=== PATIENT | male | born 1940 | race Caucasian/White ===

== ENCOUNTER 2018-10-15 00:28 | Observation (INO) ==
[2018-10-15] MEDS ORDERED: 0.9 % Sodium Chloride 1,000 ML IVC ONE ×3 (00:40→07:35)
--- NOTE | 2018-10-15 01:18 | Emergency Department Note ---
Disposition Clinical Impression: Acute kidney injury, Prostate cancer metastatic to multiple sites Failure to thrive Qualifiers: Failure to thrive age range: in adult Qualified Code(s): R62.7 - Adult failure to thrive Disposition: Admitted As Inpatient General Adult HPI - General Chief complaint: ED Weakness Stated complaint: weakness Time Seen by Provider: 10/15/18 00:33 Source: patient, EMS Mode of arrival: EMS Limitations: no limitations Nursing Notes Reviewed: Yes Vital Signs Reviewed: Yes - History of Present Illness HPI Narrative: 78-year-old male with a history of current prostate cancer with metastasis to liver, bone, visceral metastasis, A. fib who is anticoagulated nonproductive, hypertension presents emergency department for evaluation of increasing weakness, he was unable get up off the toilet today at home. Patient states that this has been an ongoing problem for several months to the point that he had stopped taking chemotherapy 5 weeks ago due to increasing weakness and "drained". Patient states he is frequently oncology for boluses of fluids because he is unable to intake. Much water or eat very much food. Patient denies feeling ill, recent illness, fever, chills, alteration in mental status, confusion, shortness of breath, coughing (he states chronic cough but has not changed), chest pain, abdominal pain, nausea, vomiting, constipation, diarrhea, genitourinary issues. Last bowel movement was 2 days ago. He is cur rently denying pain. Onset (ago): month(s) Pain Scale: 0 - Related Data Home Medications Medication Instructions Recorded Confirmed Ondansetron ODT [Zofran ODT] 4 mg SL Q6HR PRN 10/15/18 10/18/18 Atorvastatin [Lipitor] 10 mg PO HS 10/18/18 10/18/18 Dabigatran [Pradaxa] 150 mg PO BID 10/18/18 10/18/18 Diltiazem HCl [Diltiazem 24Hr Cd] 360 mg PO DAILY 10/18/18 10/18/18 Metoprolol Succinate [Toprol Xl] 100 mg PO DAILY 10/18/18 10/18/18 Omeprazole [PriLOSEC] 40 mg PO DAILY 10/18/18 10/18/18 hydroCHLOROthiazide 25 mg PO DAILY 10/18/18 10/18/18 [Hydrochlorothiazide] Previous Rx's Medication Instructions Recorded Acetaminophen [Tylenol Susp] 650 mg PO Q6HR PRN ud.liq 10/18/18 Haloperidol Oral Conc [Haldol] 2 mg PO Q6H udc 10/18/18 Hyoscyamine SL [Levsin Sl] 0.125 mg SL Q4HR PRN tab.subl 10/18/18 LORazepam Oral Conc [Ativan Oral 1 mg PO Q4HR PRN mls 10/18/18 Conc] Levalbuterol Neb [Xopenex Neb] 0.63 mg IH [id number] vial.neb 10/18/18 MORPHINE SUL Oral CONC [Roxanol 5 mg SL Q1H PRN oral.syg 10/18/18 Oral Conc] MORPHINE SUL Oral CONC [Roxanol 10 mg SL Q1H PRN oral.syg 10/18/18 Oral Conc] Allergies Allergy/AdvReac Type Severity Reaction Status Date / Time No Known Allergies Allergy Verified 10/15/18 13:42 All systems ED: reviewed and negative except as stated. Review of Systems: As Per HPI Past Medical History - Past Medical History Attestation: Yes The following information was validated with the patient. Source: patient, old records reviewed Medical history: Reports: arthritis, atrial fibrillation, cancer, GERD, h ypertension, other Surgical history: Reports: orthopedic, other, other Psychiatric history: Reports: no psych history - Social History Smoking Status: Never smoker Smokeless Tobacco Status: No Alcohol use: Reports: occasionally Drug use: Reports: none Physical Exam - General Limitations: no limitations General appearance: alert, in no apparent distress - Head Head exam: atraumatic, normocephalic, normal inspection - Eye Eye exam: Present: normal appearance - ENT ENT exam: mucous membranes dry - Neck Neck exam: Present: normal inspection, full ROM, trachea midline - Chest Chest inspection: Present: normal inspection, symmetric chest wall rise, other (Chronic edema left greater than right) - Respiratory Respiratory exam: Present: normal lung sounds bilaterally - Cardiovascular Cardiovascular exam: Present: tachycardia, irregular rhythm - Abdominal Exam Abdominal exam: Present: soft, Non-Tender, normal bowel sounds - Expanded Lower Extremity Exam Neurovascular/Tendon exam: Present: normal capillary refill. Absent: pulse deficit, motor deficit, sensory deficit - Neurological Exam Neurological exam: Present: alert, oriented X3 - Psychiatric Psychiatric exam: Present: normal affect, normal mood - Skin Skin exam: Present: warm, dry, intact, normal color Course Course Narrative: Cachetic, chronically ill appearing male in no acute distress. Patient does not appear toxic, he does appear dry. Patient is afebrile, tachycardic with a heart rate sustaining between 1:30 and 155, EKG reveals atrial fibrillation with a hea rt rate of 126, no noted to be sustaining slightly higher during assessment. Respirations are easy and even. He is not hypoxic, he appears to have great perfusion distally, capillary refill brisk. During examination patient blood pressure systolics in the 80s, and 10 minutes later systolic was in the low 60s. Physical exam reveals patient is alert and oriented, neurologically intact, carrying conversation well able to recall for and long-term memory. Patient is very pleasant he is not anxious. Patient noted with chronic edema to the bilateral lower extremities left greater than right, he states this has not changed that he used to be on hydrochlorothiazide however he was taken off the due to decrease fluid intake. Rest of physical exam is benign Multiple oncology visits for fluid replacement within the last several months. Record review shows last echo 2014 with a 55% ejection fraction. Patient has chronic A. fib he is appropriately anticoagulated. Patient without signs of systemic illness, I feel the elevated heart rate is mostly due to severe dehydration, patient is chronically weak though it is progressing. We will obtain labs, chest x-ray, UA to rule out infectious process. Patient without evidence of systemic infection or evidence of sepsis initially, however given cancer diagnosis it could just be hidden. We will start fluid boluses for blood pressure management, heart rate control, rehydration. Patient's family is with him in the room. We did discuss with patient in the life care, CODE STATUS he and family state that no one oncologist had this conversation with him yet. Reluctant we will conversation at this time, we will proceed with full resuscitation and continue conversation. Plan initially was for admission for failure to thrive pending testing and further evaluation. - Reevaluation(s) Reevaluation #1: Patient's chest x-ray shows worsening metastatic disease when comparison with previous study, patient with metastasis to liver, bones, he is very to thrive not tolerating by mouth intake or chemotherapy. His heart rate has been sustaining in the 110s, blood pressure is now 90 systolic after 1 L fluid, we will start the second liter. Labs returned with a CBC benign, creatinine elevated at 2.02, GFR 32, and AST significantly elevated from baseline, lactic acid is 2.9. Troponin is negative, patient is slightly hypokalemic, hypocalcemic (supposed to have a calcium infusion in the a.m. tomorrow). His could be attributed to the severe dehydration, failure to thrive from lack of nutritional intake and cancer metastasis or patient could have an underlying systemic response that has not revealed itself as of yet. We will continue to give fluids to stabilize blood pressure and heart rate as well as we will give one dose of Zosyn. Again, conversation with patient in front of and son with his permission regarding prognosis, presumptive worsening of metastasis to the lungs, failure to thrive status. We did have a conversation regarding CODE STATUS, patient with new information and is very upset, he is fluctuating between intubation or not. Conversation with family very emotional, patient visibly upset and he does feel slightly anxious while talking about it. Patient continues to fluctuate between resuscitation status and no resuscitation, I did discuss with them that he is welcome to change his mind and that we will have the oncology and palliative people speak with him in the morning they are agreeable to this. As of right now does appear patient will be a full code at least through the nighttime hours. Patient with good family support, they do agree with admission as they are unable to care for him at home. Patient is agreeable with inpatient status see no see cannot take care of himself at home. Did speak with hospitalist who is agreeable for admission, I did discuss with family consult palliative care and is agreeable to meeting with the palliative team as well as the oncology team, spoke with bed management blood in them know of plan for palliative consult, failure to thrive, there are beds available on the unit that holds the palliative patient's, plan for admission to that particular unit. We will transition patient to the inpatient team at this time. Time: 03:01 Vital Signs Temperature 97.6 F 10/15/18 00:31 Pulse Rate 61 10/15/18 00:31 Respiratory Rate 20 10/15/18 00:31 Blood Pressure 79/59 10/15/18 00:31 O2 Sat by Pulse Oximetry 94 10/15/18 00:31 Temperature 98 F 10/18/18 04:25 Pulse Rate 160 10/18/18 04:25 Respiratory Rate 20 10/18/18 05:44 Blood Pressure 56/37 10/18/18 04:25 O2 Sat by Pulse Oximetry 94 10/18/18 05:44 Oxygen Delivery Oxygen Delivery Room Air Medical Decision Making - Lab Data Result diagrams: 10/16/18 06:59 10/16/18 06:59 Lab Results 10/15/18 10/15/18 10/15/18 Range/Units 01:02 01:02 01:02 WBC 7.1 (4.3-11.1) K/mcL RBC 4.46 (4.19-5.50) M/mcL Hgb 11.9 L (12.9-16.9) g/dL Hct 38.1 (37.5-50.1) % MCV 85.4 (83.0-100.0) fL MCH 26.7 L (28.0-33.3) pg MCHC 31.2 L (31.6-35.5) g/dL RDW 19.6 H (11.5-14.5) % Plt Count 338 (140-400) K/mcL MPV 9.5 (9.4-12.4) fL Immature Gran % 1.0 (0-4) % Seg Neutrophils % 82.1 % Lymphocytes % 8.2 % Monocytes % 7.7 % Eosinophils % 0.6 % Basophils % 0.4 % Neutrophils # 5.8 (1.6-8.9) K/mcL Lymphocytes # 0.6 (0.6-4.6) K/mcL Monocytes # 0.6 (0.0-1.3) K/mcL Eosinophils # 0.0 (0.0-0.6) K/mcL Basophils # 0.0 (0.0-0.2) K/mcL Nucleated RBCs/100 WBC 0.4 H (0) /100 WBC PT (9.4-12.1) Seconds INR Sodium 136 (136-145) mEq/L Potassium 3.3 L (3.5-5.1) mEq/L Chloride 101 (98-107) mEq/L Carbon Dioxide 19 L (23-29) mEq/L BUN 36 H (8-23) mg/dL Creatinine 2.02 H (0.70-1.30) mg/dL Est GFR ( Amer) 39 L (> 60) Est GFR (Non-Af Amer) 32 L (> 60) BUN/Creatinine Ratio 18 (6-26) Glucose 108 H (70-105) mg/dL Calculated Osmolality 291 (280-300) Lactic Acid 2.9 H (0.5-2.2) mmol/L Calcium 6.9 L (8.6-10.3) mg/dL Phosphorus 4.1 (2.7-4.5) mg/dL Magnesium 1.9 (1.6-2.6) mg/dL Total Bilirubin 0.9 (0.3-1.0) mg/dL Direct Bilirubin 0.3 H (0.0-0.2) mg/dL Indirect Bilirubin 0.6 (0.0-1.2) mg/dL AST 219 H (13-39) Units/L ALT 35 (7-52) Units/L Alkaline Phosphatase 213 H (34-104) Units/L Troponin I < 0.03 (< 0.04) ng/mL Serum Total Protein 5.2 L (6.4-8.9) g/dL Albumin 2.8 L (3.5-5.7) g/dL Globulin 2.4 (2.4-3.5) g/dL Albumin/Globulin Ratio 1.2 (1.1-2.2) Specimen Rejected Blood Type Antibody Screen 10/15/18 10/15/18 10/15/18 Range/Units 01:02 01:36 01:49 WBC (4.3-11.1) K/mcL RBC (4.19-5.50) M/mcL Hgb (12.9-16.9) g/dL Hct (37.5-50.1) % MCV (83.0-100.0) fL MCH (28.0-33.3) pg MCHC (31.6-35.5) g/dL RDW (11.5-14.5) % Plt Count (140-400) K/mcL MPV (9.4-12.4) fL Immature Gran % (0-4) % Seg Neutrophils % % Lymphocytes % % Monocytes % % Eosinophils % % Basophils % % Neutrophils # (1.6-8.9) K/mcL Lymphocytes # (0.6-4.6) K/mcL Monocytes # (0.0-1.3) K/mcL Eosinophils # (0.0-0.6) K/mcL Basophils # (0.0-0.2) K/mcL Nucleated RBCs/100 WBC (0) /100 WBC PT 20.5 H (9.4-12.1) Seconds INR 1.8 Sodium (136-145) mEq/L Potassium (3.5-5.1) mEq/L Chloride (98-107) mEq/L Carbon Dioxide (23-29) mEq/L BUN (8-23) mg/dL Creatinine (0.70-1.30) mg/dL Est GFR ( Amer) (> 60) Est GFR (Non-Af Amer) (> 60) BUN/Creatinine Ratio (6-26) Glucose (70-105) mg/dL Calculated Osmolality (280-300) Lactic Acid (0.5-2.2) mmol/L Calcium (8.6-10.3) mg/dL Phosphorus (2.7-4.5) mg/dL Magnesium (1.6-2.6) mg/dL Total Bilirubin (0.3-1.0) mg/dL Direct Bilirubin (0.0-0.2) mg/dL Indirect Bilirubin (0.0-1.2) mg/dL AST (13-39) Units/L ALT (7-52) Units/L Alkaline Phosphatase (34-104) Units/L Troponin I (< 0.04) ng/mL Serum Total Protein (6.4-8.9) g/dL Albumin (3.5-5.7) g/dL Globulin (2.4-3.5) g/dL Albumin/Globulin Ratio (1.1-2.2) Specimen Rejected Volume Blood Type B POSITIVE Antibody Screen NEGATIVE
[2018-10-15 01:21] LABS: Basophils % 0.4 %; Eosinophils % 0.6 %; Hematocrit 38.1 % (37.5-50.1); Hemoglobin 11.9 g/dL (12.9-16.9); Lymphocytes # 0.6 K/mcL (0.6-4.6); Lymphocytes % 8.2 %; Mean Corpuscular HGB Conc 31.2 g/dL (31.6-35.5); Mean Corpuscular Hemoglobin 26.7 pg (28.0-33.3); Mean Corpuscular Volume 85.4 fL (83.0-100.0); Mean Platelet Volume 9.5 fL (9.4-12.4); Monocytes # 0.6 K/mcL (0.0-1.3); Monocytes % 7.7 %; Neutrophils # 5.8 K/mcL (1.6-8.9); Nucleated Red Blood Cells 0.4 /100 WBC (0); Platelet Count 338 K/mcL (140-400); Red Blood Count 4.46 M/mcL (4.19-5.50); Red Cell Distribution Width 19.6 % (11.5-14.5); Segmented Neutrophils % 82.1 %
[2018-10-15 02:00] LABS: INR 1.8; Prothrombin Time 20.5 Seconds (9.4-12.1)
[2018-10-15 02:01] LABS: Alanine Aminotransferase 35 Units/L (7-52); Albumin 2.8 g/dL (3.5-5.7); Albumin/Globulin Ratio 1.2 (1.1-2.2); Alkaline Phosphatase 213 Units/L (34-104); Aspartate Amino Transferase 219 Units/L (13-39); BUN/Creatinine Ratio 18 (6-26); Bilirubin,Direct 0.3 mg/dL (0.0-0.2); Bilirubin,Indirect 0.6 mg/dL (0.0-1.2); Bilirubin,Total 0.9 mg/dL (0.3-1.0); Blood Urea Nitrogen 36 mg/dL (8-23); Calcium 6.9 mg/dL (8.6-10.3); Carbon Dioxide 19 mEq/L (23-29); Chloride 101 mEq/L (98-107); Globulin 2.4 g/dL (2.4-3.5); Glucose 108 mg/dL (70-105); Magnesium 1.9 mg/dL (1.6-2.6); Osmolality,Calculated 291 (280-300); Phosphorous 4.1 mg/dL (2.7-4.5); Potassium 3.3 mEq/L (3.5-5.1); Sodium 136 mEq/L (136-145); Total Protein 5.2 g/dL (6.4-8.9); Troponin I < 0.03 ng/mL (< 0.04); eGFR For Non-African Americans 32 (> 60)
[2018-10-15] MEDS ORDERED: Potassium Chloride Elixir 20 MEQ/15 ML UDC PO ONE (02:06)
[2018-10-15] MEDS ORDERED: Piperacillin/Tazobactam 3.375 GM in 0.9 % Sodium Chloride Mini Bag 100 ML IVPB ONE (02:51)
[2018-10-15] MEDS ORDERED: Ondansetron 4 MG/2 ML VIAL IVP PRN (03:22)
[2018-10-15] MEDS ORDERED: Naloxone 0.4 MG/ML INJ IVP PRN ×2 (03:22→03:23)
[2018-10-15] MEDS ORDERED: Acetaminophen 325 MG TABLET PO PRN (03:23)
--- NOTE | 2018-10-15 03:28 | Internal Med History&Physical ---
Date of Encounter: 10/15/18 Time of Encounter: 03:24 Internal Medicine - H&P: HPI Chief complaint: weakness Admitted From: Emergency Dept Plans for Post Hospital Care: Home History of present illness: Mr. Cabrera is a 78 year old male with history of hypertension, A. fib, GERD, metastatic prostate cancer with multiple treatment modalities in the past but lately has been on chemotherapy with last dose about 5 weeks ago. He has not had chemotherapy since then as his performance status has declined. He has apparently been lethargic and weak for the past couple months or so. This has progressed to needing IV hydration through his oncologist lately. The patient is walker dependent now. Today he could not get himself up from the commode and EMS were called and transferred the patient to facility. He was noted to be tachycardic and in A. fib with rates reports the 140s.. He had signs of dehydration with a blood pressure of 70 systolically initially. This improved with IV fluids. He also received 40 mEq of oral potassium in the ED as his potassium was 3.3. Labs also showed lactic acidosis and acute kidney injury as well as elevated liver enzymes consistent with known metastatic prostate cancer to the liver. He denies any fever, chills, nausea, vomiting, chest pain, abdominal pain, diarrhea, shortness of breath, urinary symptoms, or neurological symptoms other than weakness. Past Med Surg Social Fam HX - Past Medical History Medical history: arthritis, atrial fibrillation, cancer, GERD, hypertension, other Additional medical history: prostate ca, Psychiatric history: no psych history - Past Surgical History Surgical History: orthopedic, other, other Additional surgical history: right knee replacement, colonoscopy, cystoscopy - Social History Smoking Status: Never smoker Smokeless Tobacco Status: No Alcohol use: occasionally Drug use: none - Family History Mother Adopted: No Living Status: Hx Family Cancer: Yes (breast cancer) Internal Medicine - H&P: Meds Aspirin Enteric Coated [Aspirin EC] 81 mg PO DAILY 10/09/15 [History] Cranberry 250 mg PO DAILY 10/09/15 [History] Gluc/Hiren-MSM#1/C/Eduin/Dago/Bor [Osteo Bi-Flex Caplet] 1 tab PO DAILY 10/09/15 [History] Ibuprofen 800 mg PO TID 10/09/15 [History] Lutein 20 mg PO DAILY 10/09/15 [History] Omeprazole [PriLOSEC] 40 mg PO DAILY 10/09/15 [History] Rivaroxaban [Xarelto] 20 mg PO DAILY #30 tablet 10/09/15 [Rx] Terazosin [Hytrin] 10 mg PO Q48H 10/09/15 [History] hydroCHLOROthiazide [Hydrochlorothiazide] 25 mg PO DAILY 10/09/15 [History] Diltiazem CD (24hr) [Cardizem CD] 300 mg PO DAILY #60 cap.er.24h 10/11/15 [Rx] GuaiFENesin/Codeine [Robitussin w/Codeine] 5 ml PO Q6HR PRN #1 pkg 10/11/15 [Rx] Dabigatran [Pradaxa] 150 mg PO BID 05/06/18 [History] Dexamethasone [Decadron] 2 tab PO BID #60 tab 05/06/18 [Rx] Magic Mouthwash [Magic Mouthwash BLM] 10 ml PO QID PRN #240 ml 05/06/18 [Rx] Metoprolol Succinate [Toprol Xl] 100 mg PO DAILY 05/06/18 [History] Ondansetron HCl [Zofran] 4 mg PO Q4H PRN #30 tablet 05/06/18 [Rx] Prochlorperazine Maleate [Compazine] 10 mg PO Q6H PRN #30 tablet 05/06/18 [Rx] predniSONE [PredniSONE] 5 mg PO BIDWM 05/06/18 [History] Diphenoxylate/Atropine [Lomotil 2.5 mg/0.025 mg] 1 each PO QID PRN 7 Days #28 tablet 07/30/18 [Rx] DiphenhydraMINE [Benadryl] 1 tab PO HS #7 capsule 08/09/18 [Rx] Potassium Chloride [K-Tab ER] 1 tab PO DAILY #15 tablet.er 08/23/18 [Rx] Tobramycin/Dex Opth DROPS [Tobradex Opth Drops] 1 drop BOTH EYES AD #2.5 ml 09/22/18 [Rx] Allergy/AdvReac Type Severity Reaction Status Date / Time No Known Allergies Allergy Verified 10/04/18 10:11 All Systems PM: A 10-system review of systems was performed and is negative for pertinent findings except as documented above in the HPI. Review of systems: All Systems reviewed negative except as mentioned above - Constitutional Vitals: Temp Pulse Resp BP Pulse Ox 97.6 F 112 23 106/77 97 10/15/18 00:31 10/15/18 02:52 10/15/18 02:52 10/15/18 02:52 10/15/18 02:52 Exam: GEN: NAD HEENT: AT, NC, No cyanosis, oral mucosa is dry, No JVD Lymphatics: No lymphadenoapthy Eyes: Extrocular muscles intact, anicteric CVS: Tachycardic and irregular. S1, S2, No m/r/g RESP: CTAB ABD: Soft, NT, ND, +BS EXT: No edema, No rashes, 2+ DP NEURO: Nonfocal, CN II-XII intact, No focal motor or sensory deficits Psych: Cooperative, depressed Internal Med - H&P Results - Labs CBC & Chem 7: 10/15/18 01:02 10/15/18 01:02 Labs: Short CBC 10/15/18 Range/Units 01:02 WBC 7.1 (4.3-11.1) K/mcL Hgb 11.9 L (12.9-16.9) g/dL Hct 38.1 (37.5-50.1) % Plt Count 338 (140-400) K/mcL Neutrophils # 5.8 (1.6-8.9) K/mcL BMP 10/15/18 01:02 Sodium 136 Potassium 3.3 L Chloride 101 Carbon Dioxide 19 L BUN 36 H Creatinine 2.02 H Glucose 108 H Calcium 6.9 L Cardiac Enzymes 10/15/18 Range/Units 01:02 Troponin I < 0.03 (< 0.04) ng/mL Liver Function 10/15/18 Range/Units 01:02 Total Bilirubin 0.9 (0.3-1.0) mg/dL Direct Bilirubin 0.3 H (0.0-0.2) mg/dL AST 219 H (13-39) Units/L ALT 35 (7-52) Units/L Alkaline Phosphatase 213 H (34-104) Units/L Albumin 2.8 L (3.5-5.7) g/dL - Impressions ITS Impressions Chest X-Ray 10/15/18 00:40 IMPRESSION: Innumerable pulmonary nodules consistent with metastatic disease. D/ / Tj Kumar MD / Tj Kumar MD Interpreting Provider: Tj Kumar MD - Assessment and plan (1) Acute kidney injury Current Visit: Yes Status: Acute Assessment and plan: Received IV fluid boluses in the ED. Will continue maintenance fluids and check labs in am. Avoid nephrotoxins. Likely due to dehydration. (2) Dehydration Current Visit: No Status: Acute Assessment and plan: As above (3) Lactic acidosis Current Visit: Yes Status: Acute Assessment and plan: Will trend after IV hydration. (4) Failure to thrive Current Visit: Yes Status: Acute Assessment and plan: Due to metastatic disease. Plan is above. Patient may be a candidate for hospice Qualifiers: Failure to thrive age range: in adult Qualified Code(s): R62.7 - Adult failure to thrive (5) Atrial fibrillation with RVR Current Visit: No Status: Acute Assessment and plan: Likely due to dehydration. Will continue IV fluids for now and resume home meds including anticoags. (6) Prostate cancer metastatic to multiple sites Current Visit: Yes Status: Acute Assessment and plan: consult oncology (7) Goals of care, counseling/discussion Current Visit: Yes Status: Acute Assessment and plan: I had a long discussion with the patient, his , and his son about his clinical picture and his metastatic disease. He is struggling about code status. We discussed the different options. I told him that we are going to consult both his oncologist and the palliative services for goals of care and they were in agreement. For now, we agreed to stay full code until they are evaluated by those services. The seems to understand chemotherapy may not be an option in the future as she says "it is killing him". - Time Spent With Patient Total time spent is greater than 50% in coordination of care (as documented) at patient's floor/unit and/or counseling patient:
[2018-10-15] MEDS ORDERED: 0.9 % Sodium Chloride 1,000 ML IVC SCH ×2 (03:30→09:00)
[2018-10-15 03:45] LABS: Bilirubin,Urine Small (Negative); Blood,Urine Moderate (Negative); Clarity,Urine Clear (Clear); Glucose,Urine (UA) Normal (Normal); Ketones,Urine Trace mg/dL (Negative); Leukocyte Esterase,Urine Negative (Negative); Nitrite,Urine Negative (Negative); Protein,Urine Trace mg/dL (Neg-Trace); Specific Gravity,Urine 1.014 (1.010-1.025); Urobilinogen,Urine Normal (Normal)
[2018-10-15 03:47] LABS: Squamous Epithelial Cell,Urine Many per lpf (None-Few)
[2018-10-15 03:52] LABS: Color,Urine Yellow (Yellow)
[2018-10-15 04:38] LABS: Bacteria,Urine Few per hpf (None-Few); Hyaline Casts,Urine Few per lpf (None-Few)
--- NOTE | 2018-10-15 04:44 | Emergency Department Note ---
Disposition Clinical Impression: Acute kidney injury, Prostate cancer metastatic to multiple sites Failure to thrive Qualifiers: Failure to thrive age range: in adult Qualified Code(s): R62.7 - Adult failure to thrive Disposition: Admitted As Inpatient Condition: Fair General Adult HPI - General Chief complaint: ED Weakness Stated complaint: weakness Time Seen by Provider: 10/15/18 00:33 Source: patient, EMS Mode of arrival: EMS Limitations: no limitations - History of Present Illness Pain Scale: 0 - Related Data Home Medications Medication Instructions Recorded Confirmed Aspirin Enteric Coated [Aspirin EC] 81 mg PO DAILY 10/09/15 10/04/18 Cranberry 250 mg PO DAILY 10/09/15 10/04/18 Gluc/Hiren-MSM#1/C/Eduin/Dago/Bor 1 tab PO DAILY 10/09/15 10/04/18 [Osteo Bi-Flex Caplet] Ibuprofen 800 mg PO TID 10/09/15 10/04/18 Lutein 20 mg PO DAILY 10/09/15 10/04/18 Omeprazole [PriLOSEC] 40 mg PO DAILY 10/09/15 10/04/18 Terazosin [Hytrin] 10 mg PO Q48H 10/09/15 10/04/18 hydroCHLOROthiazide 25 mg PO DAILY 10/09/15 10/04/18 [Hydrochlorothiazide] Dabigatran [Pradaxa] 150 mg PO BID 05/06/18 10/04/18 Metoprolol Succinate [Toprol Xl] 100 mg PO DAILY 05/06/18 10/04/18 predniSONE [PredniSONE] 5 mg PO BIDWM 05/06/18 10/04/18 Previous Rx's Medication Instructions Recorded Rivaroxaban [Xarelto] 20 mg PO DAILY #30 tablet 10/09/15 Diltiazem CD (24hr) [Cardizem CD] 300 mg PO DAILY #60 cap.er.24h 10/11/15 GuaiFENesin/Codeine [Robitussin 5 ml PO Q6HR PRN #1 pkg 10/11/15 w/Codeine] Dexamethasone [Decadron] 2 tab PO BID #60 tab 05/06/18 Magic Mouthwash [Magic Mouthwash 10 ml PO QID PRN #240 ml 05/06/18 BLM] Ondansetron HCl [Zofran] 4 mg PO Q4H PRN #30 tablet 05/06/18 Prochlorperazine Maleate 10 mg PO Q6H PRN #30 tablet 05/06/18 [Compazine] Diphenoxylate/Atropine [Lomotil 1 each PO QID PRN 7 Days #28 tablet 07/30/18 2.5 mg/0.025 mg] DiphenhydraMINE [Benadryl] 1 tab PO HS #7 capsule 08/09/18 Potassium Chloride [K-Tab ER] 1 tab PO DAILY #15 tablet.er 08/23/18 Tobramycin/Dex Opth DROPS 1 drop BOTH EYES AD #2.5 ml 09/22/18 [Tobradex Opth Drops] Allergies Allergy/AdvReac Type Severity Reaction Status Date / Time No Known Allergies Allergy Verified 10/04/18 10:11 Past Medical History - Past Medical History Medical history: Reports: arthritis, atrial fibrillation, cancer, GERD, hypertension, other Surgical history: Reports: orthopedic, other, other Psychiatric history: Reports: no psych history - Social History Smoking Status: Never smoker Smokeless Tobacco Status: No Alcohol use: Reports: occasionally Drug use: Reports: none Physical Exam - General Limitations: no limitations General appearance: alert, in no apparent distress Course Vital Signs Temperature 97.6 F 10/15/18 00:31 Pulse Rate 61 10/15/18 00:31 Respiratory Rate 20 10/15/18 00:31 Blood Pressure 79/59 10/15/18 00:31 O2 Sat by Pulse Oximetry 94 10/15/18 00:31 Temperature 97.6 F 10/15/18 00:31 Pulse Rate 117 10/15/18 03:38 Respiratory Rate 20 10/15/18 03:38 Blood Pressure 94/65 10/15/18 03:38 O2 Sat by Pulse Oximetry 95 10/15/18 03:38 Oxygen Delivery Oxygen Delivery Room Air Medical Decision Making - Lab Data Result diagrams: 10/15/18 01:02 10/15/18 01:02 Lab Results 10/15/18 10/15/18 10/15/18 Range/Units 01:02 01:02 01:02 WBC 7.1 (4.3-11.1) K/mcL RBC 4.46 (4.19-5.50) M/mcL Hgb 11.9 L (12.9-16.9) g/dL Hct 38.1 (37.5-50.1) % MCV 85.4 (83.0-100.0) fL MCH 26.7 L (28.0-33.3) pg MCHC 31.2 L (31.6-35.5) g/dL RDW 19.6 H (11.5-14.5) % Plt Count 338 (140-400) K/mcL MPV 9.5 (9.4-12.4) fL Immature Gran % 1.0 (0-4) % Seg Neutrophils % 82.1 % Lymphocytes % 8.2 % Monocytes % 7.7 % Eosinophils % 0.6 % Basophils % 0.4 % Neutrophils # 5.8 (1.6-8.9) K/mcL Lymphocytes # 0.6 (0.6-4.6) K/mcL Monocytes # 0.6 (0.0-1.3) K/mcL Eosinophils # 0.0 (0.0-0.6) K/mcL Basophils # 0.0 (0.0-0.2) K/mcL Nucleated RBCs/100 WBC 0.4 H (0) /100 WBC PT (9.4-12.1) Seconds INR Sodium 136 (136-145) mEq/L Potassium 3.3 L (3.5-5.1) mEq/L Chloride 101 (98-107) mEq/L Carbon Dioxide 19 L (23-29) mEq/L BUN 36 H (8-23) mg/dL Creatinine 2.02 H (0.70-1.30) mg/dL Est GFR ( Amer) 39 L (> 60) Est GFR (Non-Af Amer) 32 L (> 60) BUN/Creatinine Ratio 18 (6-26) Glucose 108 H (70-105) mg/dL Calculated Osmolality 291 (280-300) Lactic Acid 2.9 H (0.5-2.2) mmol/L Calcium 6.9 L (8.6-10.3) mg/dL Phosphorus 4.1 (2.7-4.5) mg/dL Magnesium 1.9 (1.6-2.6) mg/dL Total Bilirubin 0.9 (0.3-1.0) mg/dL Direct Bilirubin 0.3 H (0.0-0.2) mg/dL Indirect Bilirubin 0.6 (0.0-1.2) mg/dL AST 219 H (13-39) Units/L ALT 35 (7-52) Units/L Alkaline Phosphatase 213 H (34-104) Units/L Troponin I < 0.03 (< 0.04) ng/mL Serum Total Protein 5.2 L (6.4-8.9) g/dL Albumin 2.8 L (3.5-5.7) g/dL Globulin 2.4 (2.4-3.5) g/dL Albumin/Globulin Ratio 1.2 (1.1-2.2) Specimen Rejected Blood Type Antibody Screen 10/15/18 10/15/18 10/15/18 Range/Units 01:02 01:36 01:49 WBC (4.3-11.1) K/mcL RBC (4.19-5.50) M/mcL Hgb (12.9-16.9) g/dL Hct (37.5-50.1) % MCV (83.0-100.0) fL MCH (28.0-33.3) pg MCHC (31.6-35.5) g/dL RDW (11.5-14.5) % Plt Count (140-400) K/mcL MPV (9.4-12.4) fL Immature Gran % (0-4) % Seg Neutrophils % % Lymphocytes % % Monocytes % % Eosinophils % % Basophils % % Neutrophils # (1.6-8.9) K/mcL Lymphocytes # (0.6-4.6) K/mcL Monocytes # (0.0-1.3) K/mcL Eosinophils # (0.0-0.6) K/mcL Basophils # (0.0-0.2) K/mcL Nucleated RBCs/100 WBC (0) /100 WBC PT 20.5 H (9.4-12.1) Seconds INR 1.8 Sodium (136-145) mEq/L Potassium (3.5-5.1) mEq/L Chloride (98-107) mEq/L Carbon Dioxide (23-29) mEq/L BUN (8-23) mg/dL Creatinine (0.70-1.30) mg/dL Est GFR ( Amer) (> 60) Est GFR (Non-Af Amer) (> 60) BUN/Creatinine Ratio (6-26) Glucose (70-105) mg/dL Calculated Osmolality (280-300) Lactic Acid (0.5-2.2) mmol/L Calcium (8.6-10.3) mg/dL Phosphorus (2.7-4.5) mg/dL Magnesium (1.6-2.6) mg/dL Total Bilirubin (0.3-1.0) mg/dL Direct Bilirubin (0.0-0.2) mg/dL Indirect Bilirubin (0.0-1.2) mg/dL AST (13-39) Units/L ALT (7-52) Units/L Alkaline Phosphatase (34-104) Units/L Troponin I (< 0.04) ng/mL Serum Total Protein (6.4-8.9) g/dL Albumin (3.5-5.7) g/dL Globulin (2.4-3.5) g/dL Albumin/Globulin Ratio (1.1-2.2) Specimen Rejected Volume Blood Type B POSITIVE Antibody Screen NEGATIVE Attestation Statement - Attestation Attestation: Medical screening examination/treatment/procedure(s) were conducted as a shared visit with non-physician practitioner(s) and myself. I personally evaluated the patient during the encounter. Patient with extensive prostate cancer history including chemotherapy though stopped approximate 5 weeks ago for worsening clinical status. Patient continued to decline at home with not wanting to eat or drink. Presents today for weakness with initial hypotension. IV fluids were given. The patient's blood pressure did improve. Currently awaiting labs for weakness workup. Patient overall despite being hypotensive states that he is asymptomatic. He has no dizziness chest pain or shortness of breath. His abdomen is soft nontender to palpation. Imaging is concerning for dehydration as well as numerous pulmonary nodules concerning for worsening metastatic disease. Case was discussed with close the patient as well as family. Patient will need further admission for further monitoring and management.
[2018-10-15 05:41] LABS: Basophils # 0.1 K/mcL (0.0-0.2); Basophils % 0.7 %; Eosinophils % 0.5 %; Hematocrit 38.9 % (37.5-50.1); Hemoglobin 12.4 g/dL (12.9-16.9); Immature Granulocytes % 0.7 % (0-4); Lymphocytes # 0.7 K/mcL (0.6-4.6); Lymphocytes % 9.1 %; Mean Corpuscular HGB Conc 31.9 g/dL (31.6-35.5); Mean Corpuscular Hemoglobin 27.3 pg (28.0-33.3); Mean Corpuscular Volume 85.5 fL (83.0-100.0); Mean Platelet Volume 9.5 fL (9.4-12.4); Monocytes # 0.6 K/mcL (0.0-1.3); Monocytes % 8.3 %; Nucleated Red Blood Cells 0.5 /100 WBC (0); Platelet Count 337 K/mcL (140-400); Red Blood Count 4.55 M/mcL (4.19-5.50); Segmented Neutrophils % 80.7 %
[2018-10-15 06:27] LABS: Calcium 6.6 mg/dL (8.6-10.3); Magnesium 2.2 mg/dL (1.6-2.6); Potassium 3.7 mEq/L (3.5-5.1)
--- NOTE | 2018-10-15 10:06 | Internal Med Progress Note ---
<NirajJovi Jordy - Last Filed: 10/15/18 14:17> Hospitalist Progress Note - Encounter Date of Encounter: 10/15/18 Time of Encounter: 08:35 - Subjective Interval History: Laying comfortably in bed. Has no new complaints. He has not had any hypotensive symptoms prior to arrival or since arrival. He says weakness unchanged. He denies blurry vision, diplopia, dizziness/lightheadedness, chest pain, sob, abdominal pain, or N/V. - Exam Vitals: Temp Pulse Resp BP Pulse Ox 97.8 F 103 19 86/53 90 10/15/18 07:05 10/15/18 07:25 10/15/18 07:05 10/15/18 09:02 10/15/18 07:05 Exam: General: Awake, alert, no acute distress, signs of toxicity, laying in bed Head: Atraumatic, normocephalic, Eye: Normal appearance, pupils equal and round, EOMi, no scleral icterus, no conjunctival injection ENT: Mucous membranes dry Neck: Normal inspection, trachea midline, full ROM Chest: Symmetric chest rise, non tender to palpation Respiratory: Normal resp effort, vesicular breath sounds, no wheezing, rhonchi or rales appreciated Cardiovascular: Tachycardic, irregular rhythm, S1/S2+, no murmurs, rubs, or gallops appreciated, radial pulse 2+ bilat, no edema Abdomen: Soft, nontender, nondistended, no guarding, rebound, or organomegaly Musculoskeletal: Spontaneously moving all extremities, no calf tenderness Skin: Warm, dry, intact Neuro: Cranial nerves 2-12 grossly intact, no focal deficits Psych: Normal affect - Assessment and Plan (1) Atrial fibrillation with RVR Current Visit: No Status: Acute Assessment and Plan: -Likely 2/2 dehydration -Anticoagulated with dabigatran at home -HR 61 on arrival and high of 127 overnight -HR 103 most recent. -Holding all rate control meds as he has been hypotensive -Will restart home dabigatran (2) Acute kidney injury Current Visit: Yes Status: Acute Assessment and Plan: -Likely prerenal in the setting of hypovolemia and hypotension -Cr on arrival 2.02 -Repeat Cr after IVF hydration 1.83 -Continue IVF today -Will trend renal function, avoid nephrotoxins (3) Prostate cancer metastatic to multiple sites Current Visit: Yes Status: Acute Assessment and Plan: -Hx of metastatic prostate cancer on palliative chemo -Last receied chemo 5 weeks ago -Palliative care consulted and said he is agreeable to hospice care if onc does not have anything further to offer -Heme/onc consulted and will see him today (4) Lactic acidosis Current Visit: Yes Status: Resolved Assessment and Plan: -Lactic 2.9 on arrival with repeat at 2.6 -Lactic decreased to 1.7 after IVF -No signs of infection (5) Failure to thrive Current Visit: Yes Status: Acute Assessment and Plan: -Likely 2/2 due to metastatic prostate cancer -Possible transition to hospice (6) Hypotension Current Visit: Yes Status: Acute Assessment and Plan: -Likely 2/2 dehydration -BP 79/59 on arrival -Received 2L IVF in ED which initially responded to but dropped again 2 hours later to 70's systolic -Received total 5L IVF in 10 hours since arrival with most recent BP 89/59 -He has been receiving 1-2L IVF at most recent onc visits over the last month for hypotension -He has not had any symptoms before or since arrival -Initially in my discussion he would like to proceed with central line placement and pressors if he did not respond to IVF. Palliative care saw him and he no longer would like to have line placed or pressors started. Possible transition to hospice care if oncology does not think they have anything further to offer for prostate cancer. -If transitions to hospice will not need to remain hospitalized as he is not symptomatic with his hypotension DVT Prophylaxis: Dabigatran - Time Spent with Patient Total time spent is greater than 50% in coordination of care (as documented) at patient's floor/unit and/or counseling patient: 25 - 35 minutes Plan of Care Discussed with: patient Internal Medicine: Result - Labs CBC & Chem 7: 10/15/18 05:26 10/15/18 05:26 Labs: Short CBC 10/15/18 10/15/18 Range/Units 01:02 05:26 WBC 7.1 7.5 (4.3-11.1) K/mcL Hgb 11.9 L 12.4 L (12.9-16.9) g/dL Hct 38.1 38.9 (37.5-50.1) % Plt Count 338 337 (140-400) K/mcL Neutrophils # 5.8 6.0 (1.6-8.9) K/mcL BMP 10/15/18 10/15/18 01:02 05:26 Sodium 136 140 Potassium 3.3 L 3.7 Chloride 101 107 Carbon Dioxide 19 L 19 L BUN 36 H 34 H Creatinine 2.02 H 1.83 H Glucose 108 H 120 H Calcium 6.9 L 6.6 L Cardiac Enzymes 10/15/18 Range/Units 01:02 Troponin I < 0.03 (< 0.04) ng/mL Liver Function 10/15/18 Range/Units 01:02 Total Bilirubin 0.9 (0.3-1.0) mg/dL Direct Bilirubin 0.3 H (0.0-0.2) mg/dL AST 219 H (13-39) Units/L ALT 35 (7-52) Units/L Alkaline Phosphatase 213 H (34-104) Units/L Albumin 2.8 L (3.5-5.7) g/dL Urine 10/15/18 Range/Units 03:34 Urine Color Yellow (Yellow) Urine Clarity Clear (Clear) Urine pH 5.0 (5.0-8.0) pH Units Ur Specific [place] 1.014 (1.010-1.025) Urine Protein Trace (Neg-Trace) mg/dL Urine Glucose (UA) Normal (Normal) mg/dL - ABG Interpretation ABG results: PT/INR, D-dimer PT 20.5 Seconds (9.4-12.1) H 10/15/18 01:49 - Impressions Impressions Chest X-Ray 10/15/18 00:40 IMPRESSION: Innumerable pulmonary nodules consistent with metastatic disease. D/ / Tj Kumar MD / Tj Kumar MD Interpreting Provider: Tj Kumar MD Consult Discharge Plan - Plan Referrals: Maritza Mccord CNP [Primary Care Provider] - <Kandy Chaudhari - Last Filed: 10/15/18 16:01> Hospitalist Progress Note - Encounter Date of Encounter: 10/15/18 - Exam Vitals: Temp Pulse Resp BP Pulse Ox 97.5 F L 100 18 89/61 97 10/15/18 10:47 10/15/18 12:10 10/15/18 10:47 10/15/18 12:10 10/15/18 10:47 - Assessment and Plan (1) Atrial fibrillation with RVR Current Visit: No Status: Acute (2) Failure to thrive Current Visit: Yes Status: Acute (3) Acute kidney injury Current Visit: Yes Status: Acute (4) Prostate cancer metastatic to multiple sites Current Visit: Yes Status: Acute (5) Lactic acidosis Current Visit: Yes Status: Resolved (6) Hypotension Current Visit: Yes Status: Acute - Time Spent with Patient Total time spent is greater than 50% in coordination of care (as documented) at patient's floor/unit and/or counseling patient: Internal Medicine: Result - Labs CBC & Chem 7: 10/15/18 05:26 10/15/18 05:26 Labs: Short CBC 10/15/18 10/15/18 Range/Units 01:02 05:26 WBC 7.1 7.5 (4.3-11.1) K/mcL Hgb 11.9 L 12.4 L (12.9-16.9) g/dL Hct 38.1 38.9 (37.5-50.1) % Plt Count 338 337 (140-400) K/mcL Neutrophils # 5.8 6.0 (1.6-8.9) K/mcL BMP 10/15/18 10/15/18 01:02 05:26 Sodium 136 140 Potassium 3.3 L 3.7 Chloride 101 107 Carbon Dioxide 19 L 19 L BUN 36 H 34 H Creatinine 2.02 H 1.83 H Glucose 108 H 120 H Calcium 6.9 L 6.6 L Cardiac Enzymes 10/15/18 Range/Units 01:02 Troponin I < 0.03 (< 0.04) ng/mL Liver Function 10/15/18 Range/Units 01:02 Total Bilirubin 0.9 (0.3-1.0) mg/dL Direct Bilirubin 0.3 H (0.0-0.2) mg/dL AST 219 H (13-39) Units/L ALT 35 (7-52) Units/L Alkaline Phosphatase 213 H (34-104) Units/L Albumin 2.8 L (3.5-5.7) g/dL Urine 10/15/18 Range/Units 03:34 Urine Color Yellow (Yellow) Urine Clarity Clear (Clear) Urine pH 5.0 (5.0-8.0) pH Units Ur Specific [place] 1.014 (1.010-1.025) Urine Protein Trace (Neg-Trace) mg/dL Urine Glucose (UA) Normal (Normal) mg/dL - ABG Interpretation ABG results: PT/INR, D-dimer PT 20.5 Seconds (9.4-12.1) H 10/15/18 01:49 - Impressions Impressions Chest X-Ray 10/15/18 00:40 IMPRESSION: Innumerable pulmonary nodules consistent with metastatic disease. D/ / Tj Kumar MD / Tj Kumar MD Interpreting Provider: Tj Kumar MD - Attending Attestation I examined this patient and my medical decision-making was reviewed with the Resident Physician Dr Healy. I agree with the documented findings, disposition and treatment plan as described except to the extent set forth below/addl details below Mr Cabrera is currently admitted with metastatic prostate cancer and failure to thrive with hypotension in outpt setting and weakness. He has hx of afib and was in afib rvr on admit with dehydration and hypokalemia. I was called early this morning to bedside for continued low bps 70s/50s. awake in bed, he is asx with bps being low, denying any chest pain, pressure, sob, lightheadedness ro dizziness. + generalized fatigue. no fevers, chills, nausea or emesis. no family at bedside. He was given addl ivf bolus with improvement into upper 80s-low 90s/60s and remains asx on MIVFs gen- alert, awake,appears stated age eyes- pupils equal round , no conjunctival pallor cv- tachy rate low 100s -110 and irreg/irreg rhythm, normal s1,s2, no murmurs appreciated, no le edema lungs- ctabl, no wheezing, rhonchi or crackles, normal resp effort on ra abd- soft, non tender, non distended, + bs neuro- AAOx3, cn grossly intact, no focal neuro deficits Hypotension, stable currently on MIVFs, and remains asx, however no major response to repeated IVF boluses , he seems very dehydrated he is not septic appearing and lactate resolved with ivfs, has no apparent active bleeding or change in cardiovasc status to account for BPs they have been chronically low requiring outpt IVF boluses with oncology over the last month for the same -he has spoken with oncology and palliative today and has changed his code status to DNR CCA DNI and declines pressor support/cva -at this time while he is considering [facility] clinical trial if available vs hospice will cont MIVF at this time but will need to reduce rate in effort to avoid fluid overload insetting of admit with afib rvr Afib with rvr- imporved with hydration, no meds given due to hypotension, rates now low 100s, on home AC NIKKI prerenal- improving with ivfs prostate ca with mets- oncology on board, palliative n board pt weighing options with his onc team and palli will follow this weekend further diagnoses and plan as documented by resident <Jovi Healy - Last Filed: 10/15/18 14:17> (5) Failure to thrive Qualifiers: Failure to thrive age range: in adult Qualified Code(s): R62.7 - Adult failure to thrive (6) Hypotension Qualifiers: Hypotension type: hypotension due to hypovolemia Qualified Code(s): I95.89 - Other hypotension; E86.1 - Hypovolemia <Kandy Chaudhari - Last Filed: 10/15/18 16:01> (2) Failure to thrive Qualifiers: Failure to thrive age range: in adult Qualified Code(s): R62.7 - Adult failure to thrive (6) Hypotension Qualifiers: Hypotension type: hypotension due to hypovolemia Qualified Code(s): I95.89 - Other hypotension; E86.1 - Hypovolemia
--- NOTE | 2018-10-15 10:13 | Palliative - Consult Note ---
Date of Encounter: 10/15/18 Time of Encounter: 09:30 - Assessment and Plan (1) Hypotension Current Visit: Yes Status: Acute Assessment and plan: Patient's blood pressure found to be 70s/50s, then 70s/30s, then increased to 80s/50s. Patient has received 3L IVF replacement bolus to increased blood pressure, only slightly responding. Discussed option to have central line insertion, blood pressure support from medications, and transfer to ICU. Discussed risk of low blood pressure reducing blood flow to vital organs and heart stopping; verbalized understanding. Understands that pressor support could benefit, but also could delay "the inevitable." Patient ultimately decided to have have pressor support nor central line placement. Dr. Healy notified of update. Plan to continue IVF for support at this time, per patient's request. Qualifiers: Hypotension type: hypotension due to hypovolemia Qualified Code(s): I95.89 - Other hypotension; E86.1 - Hypovolemia (2) Prostate cancer metastatic to multiple sites Current Visit: Yes Status: Acute Assessment and plan: Oncology consult in place. Patient desires to hear what options he could have in regards to treatment with continued decline on Chemo. Willing to consider other options, but only if cancer center has nothing more to offer. Notified Dr. Healy of patient's plan. (3) Goals of care, counseling/discussion Current Visit: Yes Status: Acute Assessment and plan: Conducted goals of care meeting with patient at bedside. Discussed home situation. Patient lives at home with providing care for him. Reports worsening weakness over the last several weeks. Discussed CODE STATUS. Patient reports he does not want CPR or intubation. Patient reports he originally thought he wanted it, but after consideration reports he knows that even if CPR restarted his heart it would not fix the cancer and he is already so weak. CODE STATUS changed to DNRCCA/DNI. Discussed Goals of care in the future. Patient interested in what Oncology may be able to offer him. If they off him anything in his current state he would be interested in trying. Explained option of hospice care and explained would be de-escalating cancer treatment while focusing on comfort; verbalized understanding. Patient requested Palliative return to evaluate goals of care post consultation with Oncology. Palliative care to continue to follow and will follow up this afternoon. Dr. Healy updated with current plan, agreeable. was included in conversation via Speaker phone. 1300: Followed up with patient post visit with Oncology. Patient awaiting to hear eligibility criteria for [facility] trial and if able to have immunotherapy. Patient reports Oncology to return later this evening and give updated information. Patient desires to have information from Oncology, then speak with regarding best plan to meet family's needs. Requested Palliative to follow up over the weekend to see what Oncology options he has been given. Palliative-CN HPI - Data of Consult Patient: new to practice Consult date: 10/15/18 Requesting Physician: Kandy Chaudhari Primary Care Provider: Maritza Mccord CNP - Consult Narrative Palliative Care/Comfort Measures: Palliative care Reason for consult: Prostate Cancer with Mets, Failure to thrive History of present illness: Mr. Cabrera is a 78 year old male arriving to [facility] on 10/15/18 with complaints of weakness. PMH: Hypertension, Atrial Fibrillation, GERD, Metat static Prostate cancer with last chemo treatment approximately 5 weeks ago. Patient has been increasingly weak for the last couple of months, including hydration via oncology recently. Patient found to be hypotensive, requiring fluid resuscitation. Chest x-ray performed, showing: Innumerable pulmonary nodules consistent with metastatic disease. Spoke with Dr. Healy prior to assessment. Patient had informed him that he desired everything be completed, including pressor support and central lines. Upon arrival for assessment, patient lying in bed with eyes closed. Patient quite pale. Alert and oriented times 3. No family present at bedside. Patient denies pain, anxiety, dyspnea, nausea, and vomiting; reports only weak. CC: Kandy Chaudhari - Time Spent with Patient Time: Total time spent is greater than 50% in coordination of care (as documented) at patient's floor/unit and/or counseling patient: Past Med Surg Social Fam HX - Past Medical History Medical history: arthritis, atrial fibrillation, cancer, GERD, hypertension, other Additional medical history: prostate cancer Psychiatric history: no psych history - Past Surgical History Surgical History: orthopedic, other, other Additional surgical history: right total knee - Social History Smoking Status: 2nd Hand Smoke Exposure Smokeless Tobacco Status: No Alcohol use: none Drug use: none - Family History Mother Adopted: No Living Status: Hx Family Cancer: Yes (breast cancer) Medications and Allergies Aspirin Enteric Coated [Aspirin EC] 81 mg PO DAILY 10/09/15 [History] Cranberry 250 mg PO DAILY 10/09/15 [History] Gluc/Hiren-MSM#1/C/Eduin/Dago/Bor [Osteo Bi-Flex Caplet] 1 tab PO DAILY 10/09/15 [History] Ibuprofen 800 mg PO TID 10/09/15 [History] Lutein 20 mg PO DAILY 10/09/15 [History] Omeprazole [PriLOSEC] 40 mg PO DAILY 10/09/15 [History] Rivaroxaban [Xarelto] 20 mg PO DAILY #30 tablet 10/09/15 [Rx] Terazosin [Hytrin] 10 mg PO Q48H 10/09/15 [History] hydroCHLOROthiazide [Hydrochlorothiazide] 25 mg PO DAILY 10/09/15 [History] Diltiazem CD (24hr) [Cardizem CD] 300 mg PO DAILY #60 cap.er.24h 10/11/15 [Rx] GuaiFENesin/Codeine [Robitussin w/Codeine] 5 ml PO Q6HR PRN #1 pkg 10/11/15 [Rx] Dabigatran [Pradaxa] 150 mg PO BID 05/06/18 [History] Dexamethasone [Decadron] 2 tab PO BID #60 tab 05/06/18 [Rx] Magic Mouthwash [Magic Mouthwash BLM] 10 ml PO QID PRN #240 ml 05/06/18 [Rx] Metoprolol Succinate [Toprol Xl] 100 mg PO DAILY 05/06/18 [History] Ondansetron HCl [Zofran] 4 mg PO Q4H PRN #30 tablet 05/06/18 [Rx] Prochlorperazine Maleate [Compazine] 10 mg PO Q6H PRN #30 tablet 05/06/18 [Rx] predniSONE [PredniSONE] 5 mg PO BIDWM 05/06/18 [History] Diphenoxylate/Atropine [Lomotil 2.5 mg/0.025 mg] 1 each PO QID PRN 7 Days #28 tablet 07/30/18 [Rx] DiphenhydraMINE [Benadryl] 1 tab PO HS #7 capsule 08/09/18 [Rx] Potassium Chloride [K-Tab ER] 1 tab PO DAILY #15 tablet.er 08/23/18 [Rx] Tobramycin/Dex Opth DROPS [Tobradex Opth Drops] 1 drop BOTH EYES AD #2.5 ml 09/22/18 [Rx] Allergy/AdvReac Type Severity Reaction Status Date / Time No Known Allergies Allergy Verified 10/04/18 10:11 - Constitutional Constitutional ROS PAL: decreased appetite, chills, fatigue, lethargy, malaise, weight loss, no fever(s) - Cardiovascular Cardiovascular ROS: leg edema, no chest pain, no dyspnea on exertion - Respiratory Respiratory: no dyspnea - Gastrointestinal Gastrointestinal: no nausea, no vomiting - Integumentary ROS Integumentary: dry skin - Neurological Neurological ROS: weakness, no abnormal movements, no abnormal speech, no memory loss - Psychiatric Psychiatric general PM: no anxiety, no confusion, no memory loss Palliative Care-Exam - Constitutional Vitals: Temp Pulse Resp BP Pulse Ox 97.8 F 103 19 86/53 90 10/15/18 07:05 10/15/18 07:25 10/15/18 07:05 10/15/18 09:02 10/15/18 07:05 General appearance: Present: cooperative, no acute distress - Head Head Exam: Present: atraumatic, normal inspection - Eye Eye exam: Present: EOMI, PERRL, conjuntiva pink. Absent: periorbital tenderness - ENT ENT exam: Present: mucous membranes dry, normal external ear exam - Neck Neck exam: Present: full ROM, normal inspection - Respiratory Respiratory exam: Present: wheezes. Absent: accessory muscle use, respiratory distress, tachypnea - Cardiovascular Cardiovascular exam: Present: irregular rhythm - Expanded Cardiovascular Exam Peripheral pulses: 1+: Posterior Tibialis (L), Posterior Tibialis (R), Dorsalis Pedis (L) PM, Dorsalis Pedis (R) PM, 2+: Radial (L), Radial (R) - GI/Abdominal Exam GI/Abdominal exam: Present: normal bowel sounds, soft. Absent: tenderness - Rectal Rectal Exam: Present: deferred - Extremities Exam Extremities exam: Present: pedal edema. Absent: calf tenderness - Back Exam Back exam: Present: normal inspection - Neurological Exam Neurological exam: Present: alert, oriented X3, strengths equal and symetr throughout. Absent: altered - Expanded Neurological Exam Patient oriented to: Present: person, place, time Coma Scale Eye Opening: To Voice Coma Scale Motor Response: Obeys Commands Coma Scale Verbal Response: Oriented Coma Scale Total: 14 - Psychiatric Psychiatric exam: Present: flat affect - Skin Skin exam: Present: dry, pallor. Absent: warm Internal Medicine - CN: Reslt - Labs CBC & Chem 7: 10/15/18 05:26 10/15/18 05:26 Labs: Short CBC 10/15/18 10/15/18 Range/Units 01:02 05:26 WBC 7.1 7.5 (4.3-11.1) K/mcL Hgb 11.9 L 12.4 L (12.9-16.9) g/dL Hct 38.1 38.9 (37.5-50.1) % Plt Count 338 337 (140-400) K/mcL Neutrophils # 5.8 6.0 (1.6-8.9) K/mcL BMP 10/15/18 10/15/18 01:02 05:26 Sodium 136 140 Potassium 3.3 L 3.7 Chloride 101 107 Carbon Dioxide 19 L 19 L BUN 36 H 34 H Creatinine 2.02 H 1.83 H Glucose 108 H 120 H Calcium 6.9 L 6.6 L Cardiac Enzymes 10/15/18 Range/Units 01:02 Troponin I < 0.03 (< 0.04) ng/mL Liver Function 10/15/18 Range/Units 01:02 Total Bilirubin 0.9 (0.3-1.0) mg/dL Direct Bilirubin 0.3 H (0.0-0.2) mg/dL AST 219 H (13-39) Units/L ALT 35 (7-52) Units/L Alkaline Phosphatase 213 H (34-104) Units/L Albumin 2.8 L (3.5-5.7) g/dL Urine 10/15/18 Range/Units 03:34 Urine Color Yellow (Yellow) Urine Clarity Clear (Clear) Urine pH 5.0 (5.0-8.0) pH Units Ur Specific [place] 1.014 (1.010-1.025) Urine Protein Trace (Neg-Trace) mg/dL Urine Glucose (UA) Normal (Normal) mg/dL - ABG Interpretation ABG results: PT/INR, D-dimer PT 20.5 Seconds (9.4-12.1) H 10/15/18 01:49 - Impressions Impressions Chest X-Ray 10/15/18 00:40 IMPRESSION: Innumerable pulmonary nodules consistent with metastatic disease. D/ / Tj Kumar MD / Tj Kumar MD Interpreting Provider: Tj Kumar MD Consult Discharge Plan - Plan Referrals: Maritza Mccord CNP [Primary Care Provider] - Palliative Quality Palliative Quality: Screen for Code Status: Yes, Screen for Goals of Care: Yes, Screen for Pain: Yes, If Pain Regimen Started, Initiate Bowel Regimen: NA, Screen for Nausea/Vomitting: Yes Code Status: 10/15/18 03:22 Resuscitation Status: Active [RES] Routine Comment: Resuscitation Status: Full Code 10/15/18 09:40 DNR [Resuscitation Status: Active] [RES] Routine Comment: Desires no Central lines or pressor support. Resuscitation Status: [id number] Palliative Scale - Palliative Performance Scale How ambulatory is this patient?: Mainly sit / lie What is patient's level of activity and evidence of disease?: Unable to do any work, Extensive disease How much self-care assistance does patient require?: Considerable assistance required How much oral intake does the patient have?: Minimal to sips What is this patient's level of consciousness?: Full Palliative Performance Score: 40 %
--- NOTE | 2018-10-15 11:15 | Oncology Inp Consult Note ---
<Kadi Travis - Last Filed: 10/15/18 11:48> Date of Encounter: 10/15/18 Time of Encounter: 10:56 Assessment and Plan (1) Prostate cancer metastatic to multiple sites Status: Acute Assessment and plan: Metastatic castrate resistant prostate cancer. Refer to [facility] for full oncologic history. Briefly the patient has progressed on Lupron, Enzalutamide on Abiraterone. On 04/07/2018 CAT scan and bone scan showed visceral metastasis with multiple liver lesions. PSA has increased to 38 on 04/13/2018 with Liver biopsy on 04/28/2018 demonstrating Prostatic adenocarcinoma, PSA focally positive, PSAP positive and CA 19.9 rare focal positive. This is consistent with metastatic prostate adenocarcinoma and no evidence of small cell transformation. He is getting Lupron every [address] Martinez and testosterone suppressed at less than 10 on 04/12/2018. He progressed on Taxotere, mainly an increase in liver metastasis and he completed 6 cycles 09/03/2018. He also has been significant toxic with the profound fatigue, which has progressively worsened. He has required multiple IVF boluses. Dr. Davis saw him 10/04 and discussed that with his poor performance status he was not a candidate for further chemotherapy. Lab testing was performed to determine if immunotherapy would be an option for him, it was also discussed that he may be able to enroll in the laparib trial at [facility]. We had a long discussion about goals and what his wishes are. He is interested in what his options are with the clinical trial at [facility] that Dr. Davis had discussed with him 10/04/18. The patient endorses that if there is a treatment that will prolong his life years he is interested in it, however he does not want to proceed with a treatment that will only prolong his life by several months. I did discuss that utilizing hospice does provide excellent support for the patient and his family. Advised that I will try and find out what his eligibility is for the [facility] clinical trial vs immunotherapy. We did discuss that chemotherapy is not an option at this time due to poor performance status. Pt agrees with this and does not want chemotherapy right now. He states that he will think about these options and will continue the discussion further this afternoon. (2) Goals of care, counseling/discussion Status: Acute Assessment and plan: Per above. (3) Hypotension Status: Acute Assessment and plan: SBP in the 70s on admission, is fluid responisve. Currently in the 80s systolic. Continue with IVF at 125cc/hr. Qualifiers: Hypotension type: hypotension due to hypovolemia Qualified Code(s): I95.89 - Other hypotension; E86.1 - Hypovolemia (4) Acute kidney injury Status: Acute Assessment and plan: Improving with IVF hydration. Patient is significantly dehydrated and will likely improve with fluids. Continue to monitor. - Data of Consult Patient: known to practice within the last 3 years Consult date: 10/15/18 Requesting Physician: Kandy Chaudhari Primary Care Provider: Maritza Mccord CNP - Consult Narrative Reason for consult: Discuss goals of care History of present illness: Mr. Cabrera is a 78 year old male with a PMH of HTN, GERD, Afib, OA and Castrate resistant metastatic prostate cancer and Visceral metastasis/liver metastasis who [facility]. He was [facility] to [facility] 10/14 with lethargy and weakness that is progressively worsening, and could not get himself up [employer]. He has been hypotensive with SPB in the 70s that is fluid responsive. He has been struggling with dehydration and getting 1L boluses frequently. He presented with hypokalemia, NIKKI, lactic acidosis, elevated liver enzymes. On arrival the patient and his family wished to remain full code until speaking with heme/onc and palliative. After speaking with palliative care this morning the patient has changed his code status to [id number]. He would like to discuss his prognosis further with heme/onc as he is deciding if he sh ould go on hospice care. Upon my evaluation of the patient he is resting in bed on 2L NC. He reports that he feels fatigued and has no energy, denies any pain. He does state that he gets dizzy when he gets up. We had a long discussion about goals and what his wishes are. He is interested in what his options are with the clinical trial at [facility] that Dr. Davis had discussed with him 10/04/18. The patient endorses that if there is a treatment that will prolong his life years he is interested in it, however he does not want to proceed with a treatment that will only prolong his life by several months. Denies pain, nausea, vomiting. Oncological history 2010 diagnosis of prostate cancer. Meliza score 3+4, PSA 5.5. He had brachytherapy with radioisotope seeds 2009. Biochemical recurrence managed with Lupron and Proscar from June 2016 to June 2017. PSA bhavesh 2.5 on 12/30/2016. Castrate resistant metastatic prostate cancer with PSA rise to 20.59 07/02/2017 Enzalutamide started June 2017. PSA response with PSA down to 8.3 07/07/2017. Since then PSA progressed to 17.96 on 02/23/2018 Abiraterone January 2017 to April 2017. PSA continued to rise 38 on 04/12/2018 CT abdomen and pelvis scan 04/07/2018 at [facility] demonstrated widespread liver lesions largest 3.5 cm and progression of bone metastasis. Liver biopsy on 04/29/2018: Prostatic adenocarcinoma PSA focally positive. PSAP positive and CA 19.9 rare focal positive. This is consistent with metastatic prostate adenocarcinoma and no evidence of small cell transformation Treatment intent: Palliative Tax 327 Number of cycles: 10 --cycle repeated every 3 weeks Docetaxel 60 mg/m day 1. (Increased to 75 mg/m from cycle 2) Prednisone 5 mg by mouth BID Completed 6 cycles from 05/17/2018 to 09/03/2018 Further treatment Intent: Palliative Cycle repeated every 3 weeks Number of cycles: 8 Cabzitaxel 20 mg/m IV day 1 Denosumab 120 mg subcutaneous every 4 weeks. Cycle 1 on 05/17/2018 Past Med Surg Social Fam HX - Past Medical History Medical history: arthritis, atrial fibrillation, cancer, GERD, hypertension, other Additional medical history: prostate cancer Psychiatric history: no psych history - Past Surgical History Surgical History: orthopedic, other, other Additional surgical history: right total knee - Social History Smoking Status: 2nd Hand Smoke Exposure Smokeless Tobacco Status: No Alcohol use: none Drug use: none - Family History Mother Adopted: No Living Status: Hx Family Cancer: Yes (breast cancer) Medications and Allergies Atorvastatin [Lipitor] 10 mg PO HS 10/15/18 [History] Cranberry Fruit Extract [Cranberry] 250 mg PO DAILY 10/15/18 [History] Dabigatran [Pradaxa] 150 mg PO BID 10/15/18 [History] Diltiazem HCl [Cardizem Cd] 360 mg PO DAILY 10/15/18 [History] Gluc/Hiren-MSM#1/C/Eduin/Dago/Bor [Osteo Bi-Flex Caplet] 1 tab PO DAILY 10/15/18 [History] Lutein [Natural Lutein] 20 mg PO DAILY 10/15/18 [History] Metoprolol Succinate [Toprol Xl] 100 mg PO DAILY 10/15/18 [History] Omeprazole [PriLOSEC] 40 mg PO DAILY 10/15/18 [History] Ondansetron ODT [Zofran ODT] 4 mg SL Q6HR PRN 10/15/18 [History] Potassium Chloride [K-Tab ER] 20 meq PO DAILY 10/15/18 [History] hydroCHLOROthiazide [Hydrochlorothiazide] 25 mg PO DAILY 10/15/18 [History] Allergy/AdvReac Type Severity Reaction Status Date / Time No Known Allergies Allergy Verified 10/15/18 13:42 Constitutional: Present: fatigue, weakness Nose, mouth and throat: Present: dizziness (with standing) Cardiovascular: Absent: chest pain Respiratory: Absent: dyspnea Gastrointestinal: Absent: abdominal pain, nausea Integumentary: Present: change in nails (peeling following chemo). Absent: erythema Neurological: Present: dizziness, weakness Psychiatric: Absent: confusion Hematologic/Lymphatic: Absent: easy bleeding Oncology - Exam - Constitutional Vitals: Temp Pulse Resp BP Pulse Ox 97.5 F L 100 18 89/59 97 10/15/18 10:47 10/15/18 10:47 10/15/18 10:47 10/15/18 10:47 10/15/18 10:47 General appearance: average body habitus, cooperative, no acute distress - Head Head exam: Present: atraumatic, normal inspection, normocephalic - ENT ENT exam: Present: mucous membranes dry Additional comments: lips cracking/peeling - Neck Neck exam: Present: normal inspection. Absent: lymphadenopathy, tenderness - Respiratory Respiratory exam: Present: CTAB - Cardiovascular Cardiovascular exam: Present: RRR - GI/Abdominal GI/Abdominal exam: Present: normal bowel sounds, soft. Absent: tenderness - Extremities Exam Extremities exam: Present: pedal edema (3+ pitting bilateral). Absent: calf tenderness, tenderness - Expanded Upper Extremity Exam Hand wrist exam: Present: nail avulsion - Expanded Lower Extremity Exam Ankle exam: Present: swelling Neuro vascular tendon exam: Absent: pulse deficit - Neurological Exam Neurological exam: Present: alert, no focal deficits. Absent: speech deficit - Psychiatric Psychiatric exam: Present: normal affect, normal mood - Skin Skin exam: Present: dry, normal color, warm Oncology - Results Labs: 10/15/18 10/15/18 10/15/18 09:47 05:26 05:26 WBC RBC Hgb Hct MCV MCH MCHC RDW Plt Count MPV Immature Gran % Seg Neutrophils % Lymphocytes % Monocytes % Eosinophils % Basophils % Neutrophils # Lymphocytes # Monocytes # Eosinophils # Basophils # Nucleated RBCs/100 WBC PT INR Sodium 140 Potassium 3.7 Chloride 107 Carbon Dioxide 19 L BUN 34 H Creatinine 1.83 H Est GFR ( Amer) 44 L Est GFR (Non-Af Amer) 36 L BUN/Creatinine Ratio 19 Glucose 120 H Calculated Osmolality 299 Lactic Acid 1.7 2.6 H Calcium 6.6 L Phosphorus Magnesium 2.2 Total Bilirubin Direct Bilirubin Indirect Bilirubin AST ALT Alkaline Phosphatase Troponin I Serum Total Protein Albumin Globulin Albumin/Globulin Ratio Urine Color Urine Clarity Urine pH Ur Specific [place] Urine Protein Urine Glucose (UA) Urine Ketones Urine Blood Urine Nitrite Urine Bilirubin Urine Urobilinogen Ur Leukocyte Esterase Urine Microscopic RBC Urine Microscopic WBC Ur Squamous Epith Cells Urine Bacteria Hyaline Casts Ur Culture Indicated? Specimen Rejected Blood Type Antibody Screen 10/15/18 10/15/18 10/15/18 05:26 03:34 01:49 WBC 7.5 RBC 4.55 Hgb 12.4 L Hct 38.9 MCV 85.5 MCH 27.3 L MCHC 31.9 RDW 20.0 H Plt Count 337 MPV 9.5 Immature Gran % 0.7 Seg Neutrophils % 80.7 Lymphocytes % 9.1 Monocytes % 8.3 Eosinophils % 0.5 Basophils % 0.7 Neutrophils # 6.0 Lymphocytes # 0.7 Monocytes # 0.6 Eosinophils # 0.0 Basophils # 0.1 Nucleated RBCs/100 WBC 0.5 H PT 20.5 H INR 1.8 Sodium Potassium Chloride Carbon Dioxide BUN Creatinine Est GFR ( Amer) Est GFR (Non-Af Amer) BUN/Creatinine Ratio Glucose Calculated Osmolality Lactic Acid Calcium Phosphorus Magnesium Total Bilirubin Direct Bilirubin Indirect Bilirubin AST ALT Alkaline Phosphatase Troponin I Serum Total Protein Albumin Globulin Albumin/Globulin Ratio Urine Color Yellow Urine Clarity Clear Urine pH 5.0 Ur Specific [place] 1.014 Urine Protein Trace Urine Glucose (UA) Normal Urine Ketones Trace H Urine Blood Moderate H Urine Nitrite Negative Urine Bilirubin Small H Urine Urobilinogen Normal Ur Leukocyte Esterase Negative Urine Microscopic RBC 5-15 H Urine Microscopic WBC 3-5 H Ur Squamous Epith Cells Many H Urine Bacteria Few Hyaline Casts Few Ur Culture Indicated? NO Specimen Rejected Blood Type Antibody Screen 10/15/18 10/15/18 10/15/18 01:36 01:02 01:02 WBC RBC Hgb Hct MCV MCH MCHC RDW Plt Count MPV Immature Gran % Seg Neutrophils % Lymphocytes % Monocytes % Eosinophils % Basophils % Neutrophils # Lymphocytes # Monocytes # Eosinophils # Basophils # Nucleated RBCs/100 WBC PT INR Sodium Potassium Chloride Carbon Dioxide BUN Creatinine Est GFR ( Amer) Est GFR (Non-Af Amer) BUN/Creatinine Ratio Glucose Calculated Osmolality Lactic Acid 2.9 H Calcium Phosphorus Magnesium Total Bilirubin Direct Bilirubin Indirect Bilirubin AST ALT Alkaline Phosphatase Troponin I Serum Total Protein Albumin Globulin Albumin/Globulin Ratio Urine Color Urine Clarity Urine pH Ur Specific [place] Urine Protein Urine Glucose (UA) Urine Ketones Urine Blood Urine Nitrite Urine Bilirubin Urine Urobilinogen Ur Leukocyte Esterase Urine Microscopic RBC Urine Microscopic WBC Ur Squamous Epith Cells Urine Bacteria Hyaline Casts Ur Culture Indicated? Specimen Rejected Volume Blood Type B POSITIVE Antibody Screen NEGATIVE 10/15/18 10/15/18 01:02 01:02 WBC 7.1 RBC 4.46 Hgb 11.9 L Hct 38.1 MCV 85.4 MCH 26.7 L MCHC 31.2 L RDW 19.6 H Plt Count 338 MPV 9.5 Immature Gran % 1.0 Seg Neutrophils % 82.1 Lymphocytes % 8.2 Monocytes % 7.7 Eosinophils % 0.6 Basophils % 0.4 Neutrophils # 5.8 Lymphocytes # 0.6 Monocytes # 0.6 Eosinophils # 0.0 Basophils # 0.0 Nucleated RBCs/100 WBC 0.4 H PT INR Sodium 136 Potassium 3.3 L Chloride 101 Carbon Dioxide 19 L BUN 36 H Creatinine 2.02 H Est GFR ( Amer) 39 L Est GFR (Non-Af Amer) 32 L BUN/Creatinine Ratio 18 Glucose 108 H Calculated Osmolality 291 Lactic Acid Calcium 6.9 L Phosphorus 4.1 Magnesium 1.9 Total Bilirubin 0.9 Direct Bilirubin 0.3 H Indirect Bilirubin 0.6 AST 219 H ALT 35 Alkaline Phosphatase 213 H Troponin I < 0.03 Serum Total Protein 5.2 L Albumin 2.8 L Globulin 2.4 Albumin/Globulin Ratio 1.2 Urine Color Urine Clarity Urine pH Ur Specific [place] Urine Protein Urine Glucose (UA) Urine Ketones Urine Blood Urine Nitrite Urine Bilirubin Urine Urobilinogen Ur Leukocyte Esterase Urine Microscopic RBC Urine Microscopic WBC Ur Squamous Epith Cells Urine Bacteria Hyaline Casts Ur Culture Indicated? Specimen Rejected Blood Type Antibody Screen Chest X-Ray 10/15/18 00:40 IMPRESSION: Innumerable pulmonary nodules consistent with metastatic disease. D/ / Tj Kumar MD / Tj Kumar MD Interpreting Provider: Tj Kumar MD Consult Discharge Plan - Plan Referrals: Maritza Mccord CNP [Primary Care Provider] - <Jeannine Interiano - Last Filed: 10/15/18 17:15> Date of Encounter: 10/15/18 - Data of Consult Requesting Physician: Kandy Chaudhari Primary Care Provider: Maritza Mccord CNP - Consult Narrative History of present illness: Mr. Cabrera is a 78 year old male with metastatic prostate cancer with recent doubling of PSA, status post numerous treatment regimen, further treatment with carbazitaxel was planned. Patient has declined in performance status due to generalized weakness and dehydration without any pain or discomfort today. He has limited treatment options and is not in a performance status to take treatment with further chemotherapy nor clinical trial. He is agreeable to palliative care/home hospice after discussion of above. I examined this patient myself and my medical decision-making was reviewed with medical staff Tammie Mayers CNP and Silvestre Bess, resident physician at rounds. I agree with the documented findings, disposition and treatment plan as described Oncology - Exam - Constitutional Vitals: Temp Pulse Resp BP Pulse Ox 98.4 F 115 19 92/61 97 10/15/18 15:49 10/15/18 15:49 10/15/18 15:49 10/15/18 15:49 10/15/18 15:49 Oncology - Results Labs: 10/15/18 10/15/18 10/15/18 09:47 05:26 05:26 WBC RBC Hgb Hct MCV MCH MCHC RDW Plt Count MPV Immature Gran % Seg Neutrophils % Lymphocytes % Monocytes % Eosinophils % Basophils % Neutrophils # Lymphocytes # Monocytes # Eosinophils # Basophils # Nucleated RBCs/100 WBC PT INR Sodium 140 Potassium 3.7 Chloride 107 Carbon Dioxide 19 L BUN 34 H Creatinine 1.83 H Est GFR ( Amer) 44 L Est GFR (Non-Af Amer) 36 L BUN/Creatinine Ratio 19 Glucose 120 H Calculated Osmolality 299 Lactic Acid 1.7 2.6 H Calcium 6.6 L Phosphorus Magnesium 2.2 Total Bilirubin Direct Bilirubin Indirect Bilirubin AST ALT Alkaline Phosphatase Troponin I Serum Total Protein Albumin Globulin Albumin/Globulin Ratio Urine Color Urine Clarity Urine pH Ur Specific [place] Urine Protein Urine Glucose (UA) Urine Ketones Urine Blood Urine Nitrite Urine Bilirubin Urine Urobilinogen Ur Leukocyte Esterase Urine Microscopic RBC Urine Microscopic WBC Ur Squamous Epith Cells Urine Bacteria Hyaline Casts Ur Culture Indicated? Specimen Rejected Blood Type Antibody Screen 10/15/18 10/15/18 10/15/18 05:26 03:34 01:49 WBC 7.5 RBC 4.55 Hgb 12.4 L Hct 38.9 MCV 85.5 MCH 27.3 L MCHC 31.9 RDW 20.0 H Plt Count 337 MPV 9.5 Immature Gran % 0.7 Seg Neutrophils % 80.7 Lymphocytes % 9.1 Monocytes % 8.3 Eosinophils % 0.5 Basophils % 0.7 Neutrophils # 6.0 Lymphocytes # 0.7 Monocytes # 0.6 Eosinophils # 0.0 Basophils # 0.1 Nucleated RBCs/100 WBC 0.5 H PT 20.5 H INR 1.8 Sodium Potassium Chloride Carbon Dioxide BUN Creatinine Est GFR ( Amer) Est GFR (Non-Af Amer) BUN/Creatinine Ratio Glucose Calculated Osmolality Lactic Acid Calcium Phosphorus Magnesium Total Bilirubin Direct Bilirubin Indirect Bilirubin AST ALT Alkaline Phosphatase Troponin I Serum Total Protein Albumin Globulin Albumin/Globulin Ratio Urine Color Yellow Urine Clarity Clear Urine pH 5.0 Ur Specific [place] 1.014 Urine Protein Trace Urine Glucose (UA) Normal Urine Ketones Trace H Urine Blood Moderate H Urine Nitrite Negative Urine Bilirubin Small H Urine Urobilinogen Normal Ur Leukocyte Esterase Negative Urine Microscopic RBC 5-15 H Urine Microscopic WBC 3-5 H Ur Squamous Epith Cells Many H Urine Bacteria Few Hyaline Casts Few Ur Culture Indicated? NO Specimen Rejected Blood Type Antibody Screen 10/15/18 10/15/18 10/15/18 01:36 01:02 01:02 WBC RBC Hgb Hct MCV MCH MCHC RDW Plt Count MPV Immature Gran % Seg Neutrophils % Lymphocytes % Monocytes % Eosinophils % Basophils % Neutrophils # Lymphocytes # Monocytes # Eosinophils # Basophils # Nucleated RBCs/100 WBC PT INR Sodium Potassium Chloride Carbon Dioxide BUN Creatinine Est GFR ( Amer) Est GFR (Non-Af Amer) BUN/Creatinine Ratio Glucose Calculated Osmolality Lactic Acid 2.9 H Calcium Phosphorus Magnesium Total Bilirubin Direct Bilirubin Indirect Bilirubin AST ALT Alkaline Phosphatase Troponin I Serum Total Protein Albumin Globulin Albumin/Globulin Ratio Urine Color Urine Clarity Urine pH Ur Specific [place] Urine Protein Urine Glucose (UA) Urine Ketones Urine Blood Urine Nitrite Urine Bilirubin Urine Urobilinogen Ur Leukocyte Esterase Urine Microscopic RBC Urine Microscopic WBC Ur Squamous Epith Cells Urine Bacteria Hyaline Casts Ur Culture Indicated? Specimen Rejected Volume Blood Type B POSITIVE Antibody Screen NEGATIVE 10/15/18 10/15/18 01:02 01:02 WBC 7.1 RBC 4.46 Hgb 11.9 L Hct 38.1 MCV 85.4 MCH 26.7 L MCHC 31.2 L RDW 19.6 H Plt Count 338 MPV 9.5 Immature Gran % 1.0 Seg Neutrophils % 82.1 Lymphocytes % 8.2 Monocytes % 7.7 Eosinophils % 0.6 Basophils % 0.4 Neutrophils # 5.8 Lymphocytes # 0.6 Monocytes # 0.6 Eosinophils # 0.0 Basophils # 0.0 Nucleated RBCs/100 WBC 0.4 H PT INR Sodium 136 Potassium 3.3 L Chloride 101 Carbon Dioxide 19 L BUN 36 H Creatinine 2.02 H Est GFR ( Amer) 39 L Est GFR (Non-Af Amer) 32 L BUN/Creatinine Ratio 18 Glucose 108 H Calculated Osmolality 291 Lactic Acid Calcium 6.9 L Phosphorus 4.1 Magnesium 1.9 Total Bilirubin 0.9 Direct Bilirubin 0.3 H Indirect Bilirubin 0.6 AST 219 H ALT 35 Alkaline Phosphatase 213 H Troponin I < 0.03 Serum Total Protein 5.2 L Albumin 2.8 L Globulin 2.4 Albumin/Globulin Ratio 1.2 Urine Color Urine Clarity Urine pH Ur Specific [place] Urine Protein Urine Glucose (UA) Urine Ketones Urine Blood Urine Nitrite Urine Bilirubin Urine Urobilinogen Ur Leukocyte Esterase Urine Microscopic RBC Urine Microscopic WBC Ur Squamous Epith Cells Urine Bacteria Hyaline Casts Ur Culture Indicated? Specimen Rejected Blood Type Antibody Screen - Attending Attestation I examined this patient and my medical decision-making was reviewed with the Advanced Practice Nurse, Tammie Mayers and resident physicians Angy Jones. I agree with the documented findings, disposition and treatment plan as described except to the extent set forth below. Inpatient Charges Provider: Dr. Naveen Interiano Consult - Inpatient: [id number]
[2018-10-15] MEDS: 0.9 % Sodium Chloride 1,000 ML IVC SCH (19:43)
--- NOTE | 2018-10-15 22:16 | Event Note ---
Date of Encounter: 10/15/18 Time of Encounter: 21:03 Notified by nurse of patient having small amount of bright red blood with bowel movement and heart rate continuing to increase. Assessed patient at bedside and discussed plan of care. Patient remains alert and oriented. Patient reports intermittent similar bright red blood with bowel movements at home secondary to hemorrhoids. Patient currently denies chest pain, palpitations, or shortness of breath despite heart rate continuing to elevate with rate control medications being held for hypotension. Discussed treatment options with patient for elevated heart rate and risks of declining treatment. At this time patient declines any treatment for his heart rate as he states he is currently not symptomatic and does not want to potentially worsen hypotension or cause fluid overload. Encouraged patient to notify us if he changes his mind or has any new symptoms or questions.
[2018-10-15] MEDS: *HR* Dabigatran 150 MG CAPSULE PO SCH (22:17)
[2018-10-16 07:37] LABS: Hematocrit 36.8 % (37.5-50.1); Hemoglobin 11.8 g/dL (12.9-16.9); Mean Corpuscular HGB Conc 32.1 g/dL (31.6-35.5); Mean Corpuscular Hemoglobin 27.3 pg (28.0-33.3); Mean Corpuscular Volume 85.2 fL (83.0-100.0); Mean Platelet Volume 9.6 fL (9.4-12.4); Platelet Count 307 K/mcL (140-400); Red Blood Count 4.32 M/mcL (4.19-5.50); Red Cell Distribution Width 19.8 % (11.5-14.5)
[2018-10-16 07:51] LABS: Calcium 6.3 mg/dL (8.6-10.3); Magnesium 1.9 mg/dL (1.6-2.6); Potassium 3.3 mEq/L (3.5-5.1)
[2018-10-16] MEDS: 0.9 % Sodium Chloride 1,000 ML IVC SCH (08:43)
[2018-10-16] MEDS: *HR* Dabigatran 150 MG CAPSULE PO SCH ×2 (08:43→20:03)
--- NOTE | 2018-10-16 10:12 | Palliative Progress Note ---
Date of Encounter: 10/16/18 Time of Encounter: 10:00 - Assessment and plan (1) Acute kidney injury Current Visit: Yes Status: Acute Assessment and plan: Improved. BUN decreased to 31 and Cr 1.45 down from 1.83. MOnitor (2) Prostate cancer metastatic to multiple sites Current Visit: Yes Status: Acute Assessment and plan: Oncology following. Patient interested in [facility] trial. Awaiting follow up information (3) Goals of care, counseling/discussion Current Visit: Yes Status: Acute Assessment and plan: , son and grandson's at bedside. Again addressed goals of care. Patient emotional during conversation. He remains DNR/DNI and does not want central line/pressors for hypotension. They are awaiting a follow up from oncology with information re: clinical trial. I did express to them that he may not be a candidate based on recent decline and performance status. I did discuss hospice with them in some detail, if they decide to pursue that route. Will f/u in am. (4) Hypotension Current Visit: Yes Status: Acute Assessment and plan: Somewhat improved, but still soft blood pressure, 90's/60s. Qualifiers: Hypotension type: hypotension due to hypovolemia Qualified Code(s): I95.89 - Other hypotension; E86.1 - Hypovolemia (5) Atrial fibrillation with RVR Current Visit: No Status: Acute - Time Spent With Patient Total time spent is greater than 50% in coordination of care (as documented) at patient's floor/unit and/or counseling patient: - Subjective Interval history: Patient with continued afib/rvr rate into 160's at times, blood pressure slightly better but still low. He is resting comfortable in bed with family at bedside. Hospitalist in to see during my visit. He has increasing edema. Denies any pain/anxiety/nausea/dyspnea, no chest pain or shortness of breath with high heart rate. - Constitutional Vitals: Abnormal lab results Hgb 11.8 g/dL (12.9-16.9) L 10/16/18 06:59 Hct 36.8 % (37.5-50.1) L 10/16/18 06:59 MCH 27.3 pg (28.0-33.3) L 10/16/18 06:59 RDW 19.8 % (11.5-14.5) H 10/16/18 06:59 Nucleated RBCs/100 WBC 0.5 /100 WBC (0) H 10/15/18 05:26 PT 20.5 Seconds (9.4-12.1) H 10/15/18 01:49 Potassium 3.3 mEq/L (3.5-5.1) L 10/16/18 06:59 Chloride 109 mEq/L (98-107) H 10/16/18 06:59 Carbon Dioxide 19 mEq/L (23-29) L 10/16/18 06:59 BUN 31 mg/dL (8-23) H 10/16/18 06:59 Creatinine 1.45 mg/dL (0.70-1.30) H 10/16/18 06:59 Est GFR ( Amer) 57 (> 60) L 10/16/18 06:59 Est GFR (Non-Af Amer) 47 (> 60) L 10/16/18 06:59 Glucose 106 mg/dL (70-105) H 10/16/18 06:59 Calcium 6.3 mg/dL (8.6-10.3) L 10/16/18 06:59 Direct Bilirubin 0.3 mg/dL (0.0-0.2) H 10/15/18 01:02 AST 219 Units/L (13-39) H 10/15/18 01:02 Alkaline Phosphatase 213 Units/L (34-104) H 10/15/18 01:02 Serum Total Protein 5.2 g/dL (6.4-8.9) L 10/15/18 01:02 Albumin 2.8 g/dL (3.5-5.7) L 10/15/18 01:02 Urine Ketones Trace mg/dL (Negative) H 10/15/18 03:34 Urine Blood Moderate (Negative) H 10/15/18 03:34 Urine Bilirubin Small (Negative) H 10/15/18 03:34 Urine Microscopic RBC 5-15 per hpf (0-3) H 10/15/18 03:34 Urine Microscopic WBC 3-5 per hpf (0-3) H 10/15/18 03:34 Ur Squamous Epith Cells Many per lpf (None-Few) H 10/15/18 03:34 General appearance: Present: no acute distress - Respiratory Respiratory exam: Present: decreased breath sounds, CTAB - Cardiovascular Cardiovascular exam: Present: irregular rhythm, tachycardia - GI/Abdominal GI/Abdominal exam: Present: distended, hypoactive bowel sounds, soft - Extremities Exam Additional comments: 3--4+ edema to bilateral lower extremities - Neurological Exam Neurological exam: Present: alert, oriented X3, strengths equal and symetr throughout Additional comments: generalized weakness - Skin Skin exam: Present: dry, pallor Palliative Quality Palliative Quality: Screen for Code Status: Yes, Screen for Goals of Care: Yes, Screen for Pain: Yes, If Pain Regimen Started, Initiate Bowel Regimen: NA, Screen for Nausea/Vomitting: Yes Code Status: 10/15/18 03:22 Resuscitation Status: Active [RES] Routine Comment: Resuscitation Status: Full Code 10/15/18 09:40 DNR [Resuscitation Status: Active] [RES] Routine Comment: Desires no Central lines or pressor support. Resuscitation Status: ISD-[id number] - Labs CBC & Chem 7: 10/16/18 06:59 10/16/18 06:59 Labs: Laboratory Results - last 24 hr 10/15/18 10/16/18 10/16/18 09:47 06:59 06:59 WBC 6.7 RBC 4.32 Hgb 11.8 L Hct 36.8 L MCV 85.2 MCH 27.3 L MCHC 32.1 RDW 19.8 H Plt Count 307 MPV 9.6 Sodium 140 Potassium 3.3 L Chloride 109 H Carbon Dioxide 19 L BUN 31 H Creatinine 1.45 H Est GFR ( Amer) 57 L Est GFR (Non-Af Amer) 47 L BUN/Creatinine Ratio 21 Glucose 106 H Calculated Osmolality 297 Lactic Acid 1.7 Calcium 6.3 L Magnesium 1.9 - ABG Interpretation ABG results: PT/INR, D-dimer PT 20.5 Seconds (9.4-12.1) H 10/15/18 01:49 Palliative Scale - Palliative Performance Scale How ambulatory is this patient?: Mainly sit / lie What is patient's level of activity and evidence of disease?: Unable to do any work, Extensive disease How much self-care assistance does patient require?: Considerable assistance required How much oral intake does the patient have?: Minimal to sips What is this patient's level of consciousness?: Full Palliative Performance Score: 40 % Consult Discharge Plan - Plan Referrals: Maritza Mccord CNP [Primary Care Provider] -
--- NOTE | 2018-10-16 11:36 | Internal Med Progress Note ---
<RoejoellenPaula Benjamin - Last Filed: 10/16/18 14:22> Hospitalist Progress Note - Encounter Date of Encounter: 10/16/18 Time of Encounter: 11:36 - Subjective Interval History: Pt seen while on bedside commode initially, stool was free of any gross blood. Pt had significant difficulty transferring from commode to bed and was tachyc ardic and exhausted once the transfer was complete. Family at bedside, states that they are waiting for Dr. Smith to let them know if he will be accepted into a clinical trial at [facility]. Dr. Smith states that she will not be able to find out this weekend and that the pt is not a good candidate at this time due to clinical status. Family does not want to make any decisions at this time about hospice or transfer of care. Pt states that he does not feel well, but is mostly tired, no pain, no nausea. - Exam Vitals: Temp Pulse Resp BP Pulse Ox 98.1 F 154 20 96/68 93 10/16/18 07:52 10/16/18 07:52 10/16/18 07:52 10/16/18 07:52 10/16/18 07:52 Exam: General: Awake, alert, no acute distress, signs of toxicity, laying in bed Head: Atraumatic, normocephalic, Eye: Normal appearance, pupils equal and round, EOMi, no scleral icterus, no conjunctival injection ENT: Mucous membranes dry Neck: Normal inspection, trachea midline, full ROM Chest: Symmetric chest rise, non tender to palpation Respiratory: Normal resp effort, vesicular breath sounds, no wheezing, rhonchi or rales appreciated Cardiovascular: Tachycardic, irregular rhythm, S1/S2+, no murmurs, rubs, or gallops appreciated, radial pulse 2+ bilat, filippo LE edema 4+ up to knee, 2+ to mid-thigh Abdomen: Soft, nontender, nondistended, no guarding, rebound, or organomegaly Musculoskeletal: Spontaneously moving all extremities, no calf tenderness Skin: Warm, dry, intact Neuro: Cranial nerves 2-12 grossly intact, no focal deficits Psych: Normal affect - Assessment and Plan (1) Acute kidney injury Current Visit: Yes Status: Acute Assessment and Plan: -Likely prerenal in the setting of hypovolemia and hypotension -Cr on arrival 2.02 -Repeat Cr after IVF hydration 1.45 -Will trend renal function, avoid nephrotoxins (2) Atrial fibrillation with RVR Current Visit: No Status: Acute Assessment and Plan: -Likely 2/2 dehydration -Anticoagulated with dabigatran at home -HR 172 most recently -Holding all rate control meds as he has been hypotensive -on Pradaxa (3) Failure to thrive Current Visit: Yes Status: Acute Assessment and Plan: -Likely 2/2 due to metastatic prostate cancer -Possible transition to hospice (4) Hypotension Current Visit: Yes Status: Acute Assessment and Plan: -Likely 2/2 dehydration -BP 79/59 on arrival -Received total 5L IVF and began to show signs of volume overload, holding fluids for now -He has been receiving 1-2L IVF at most recent onc visits over the last month for hypotension -He has not had any symptoms before or since arrival - Pt refused CVC and pressors for BP support -If transitions to hospice will not need to remain hospitalized as he is not symptomatic with his hypotension (5) Lactic acidosis Current Visit: Yes Status: Resolved Assessment and Plan: -Lactic 2.9 on arrival with repeat at 2.6 -Lactic decreased to 1.7 after IVF -No signs of infection (6) Prostate cancer metastatic to multiple sites Current Visit: Yes Status: Acute Assessment and Plan: -Hx of metastatic prostate cancer on palliative chemo -Last rec'd chemo 5 weeks ago -Palliative care consulted and said he is agreeable to hospice care if onc does not have anything further to offer -Heme/onc consulted and saw him yesterday, family asked about clinical trials, Dr. Smith said this would not be appropriate given his current clinical status but would make phone calls next week DVT Prophylaxis: Dabigatran - Time Spent with Patient Total time spent is greater than 50% in coordination of care (as documented) at patient's floor/unit and/or counseling patient: less than 15 minutes Plan of Care Discussed with: family Internal Medicine: Result - Labs CBC & Chem 7: 10/16/18 06:59 10/16/18 06:59 Labs: Short CBC 10/16/18 Range/Units 06:59 WBC 6.7 (4.3-11.1) K/mcL Hgb 11.8 L (12.9-16.9) g/dL Hct 36.8 L (37.5-50.1) % Plt Count 307 (140-400) K/mcL BMP 10/16/18 06:59 Sodium 140 Potassium 3.3 L Chloride 109 H Carbon Dioxide 19 L BUN 31 H Creatinine 1.45 H Glucose 106 H Calcium 6.3 L - ABG Interpretation ABG results: PT/INR, D-dimer PT 20.5 Seconds (9.4-12.1) H 10/15/18 01:49 Consult Discharge Plan - Plan Referrals: Flex,Maritza Alexander [employer] [Primary Care Provider] - <Kandy Chaudhari - Last Filed: 10/16/18 16:09> Hospitalist Progress Note - Encounter Date of Encounter: 10/16/18 - Exam Vitals: Temp Pulse Resp BP Pulse Ox 97.7 F 172 20 101/65 95 10/16/18 12:12 10/16/18 12:12 10/16/18 12:12 10/16/18 12:12 10/16/18 12:12 - Assessment and Plan (1) Atrial fibrillation with RVR Current Visit: No Status: Acute (2) Failure to thrive Current Visit: Yes Status: Acute (3) Acute kidney injury Current Visit: Yes Status: Acute (4) Prostate cancer metastatic to multiple sites Current Visit: Yes Status: Acute (5) Lactic acidosis Current Visit: Yes Status: Resolved (6) Hypotension Current Visit: Yes Status: Acute - Time Spent with Patient Total time spent is greater than 50% in coordination of care (as documented) at patient's floor/unit and/or counseling patient: Internal Medicine: Result - Labs CBC & Chem 7: 10/16/18 06:59 10/16/18 06:59 Labs: Short CBC 10/16/18 Range/Units 06:59 WBC 6.7 (4.3-11.1) K/mcL Hgb 11.8 L (12.9-16.9) g/dL Hct 36.8 L (37.5-50.1) % Plt Count 307 (140-400) K/mcL [facility] 10/16/18 06:59 Sodium 140 Potassium 3.3 L Chloride 109 H Carbon Dioxide 19 L BUN 31 H Creatinine 1.45 H Glucose 106 H Calcium 6.3 L - ABG Interpretation ABG results: PT/INR, D-dimer PT 20.5 Seconds (9.4-12.1) H 10/15/18 01:49 - Attending Attestation I examined this patient and my medical decision-making was reviewed with the Resident Physician Dr Mendoza. I agree with the documented findings, disposition and treatment plan as described except to the extent set forth below/addl details below Mr Cabrera is currently admitted with metastatic prostate cancer and failure to thrive with hypotension in outpt setting and weakness. He has hx of afib and was in afib rvr on admit with dehydration and hypokalemia. He remains in afib that cannot be rate controlled due to hypotension and cannot currently be given ivf fluids due to fluid overload and family preference not to overload him further. He is actively being followed by his oncology team and Palliative care and decision s are being made regarding hospice. he is asleep but awakes to name. denies any chest pain, palpitations, lightheadedness, dizziness or pain. He would like me to speak to his family whom is at the bedside while he rests. Harriett Aleman of Palliative at bedside as well. Family is not vocal regarding their wishes, mayelin in light of uncontrolled afib currently. They have little to no input as to goals of care and state they just are waiting to see if he is able to get into [facility] trial. They dont feel he is uncomfortable at this time. I verbalized my concern that if this weekend he becomes uncomfortable we will need to make decisions regarding wether to make him comfortable with medications that would impair his bp further verses decisions to treat afib with rvr that would compromise his bp and resp status. Again, they had little to say gen- alert, awake,appears stated age eyes- pupils equal round , no conjunctival pallor cv- tachy rate and irreg/irreg rhythm, normal s1,s2, no murmurs appreciated, 2+ pitting le edema bl shins lungs- ctabl, no wheezing, rhonchi or crackles, normal resp effort on ra abd- soft, non tender, non distended, + bs neuro- AAOx3, Hypotension, stable currently Afib with rvr, uncontrolled - had some nimal brbpr with a bm he stated was same as hemrrhoidal beeding at home, bm today without blood visualized by resident, no other bleeding to account for hypotension -there is no apparent infectious source of low bps as this has been chronic for oe month and despite tachy--not sepsis -bps have been chronically low requiring outpt IVF boluses with oncology over the last month for the same and this is most likely related to dehydration and his chronic poor health -he has spoken with oncology and palliative 10/15 and has changed his code status to DNR CCA DNI and declines pressor support/cva , however family has not been able to make any further decisions -palliative actively following -our team reached out to Dr Smith today and she confirmed she made it clear to family he is not a candidate for trial at this time, palli updated as family is having a very hard time grasping this -he is clinically declining and CV status is detioriating with inability to treat HR and BP at this time due to hypotension and fluid overload, and family nowrefusing fluids due to appropriate fear of resp overload causing distress- thankfully he is asx and resting comfortably--but quick decisions will have to be made by family if he becomes uncomfortable -trial very low dose oral ativan for HR 170s -supplemental o2 -cont home ac at this time and monitor for bleeding hypokalemia- replete and monitor NIKKI prerenal- improving s/p ivfs prostate ca with mets- oncology on board, palliative on board as above further diagnoses and plan as documented by resident <Paula Mendoza - Last Filed: 10/16/18 14:22> (3) Failure to thrive Qualifiers: Failure to thrive age range: in adult Qualified Code(s): R62.7 - Adult failure to thrive (4) Hypotension Qualifiers: Hypotension type: hypotension due to hypovolemia Qualified Code(s): I95.89 - Other hypotension; E86.1 - Hypovolemia <Kandy Chaudhari - Last Filed: 10/16/18 16:09> (2) Failure to thrive Qualifiers: Failure to thrive age range: in adult Qualified Code(s): R62.7 - Adult failure to thrive (6) Hypotension Qualifiers: Hypotension type: hypotension due to hypovolemia Qualified Code(s): I95.89 - Other hypotension; E86.1 - Hypovolemia
[2018-10-16] MEDS ORDERED: Potassium Chloride Elixir 20 MEQ/15 ML UDC PO ONE (11:43)
[2018-10-16] MEDS: Magnesium Oxide 400 MG TABLET PO SCH (12:06)
[2018-10-16] MEDS ORDERED: *HR* LORazepam 0.5 MG TABLET PO ONE ×2 (13:18→21:16)
[2018-10-17] MEDS: *HR* LORazepam Oral Conc 2 MG/ML PO PRN ×4 (00:35→22:44)
[2018-10-17] MEDS: 0.9 % Sodium Chloride 1,000 ML IVC SCH ×2 (07:09→07:10)
--- NOTE | 2018-10-17 07:52 | Internal Med Progress Note ---
<RoejoellenWenceslaoPaula L - Last Filed: 10/17/18 14:22> Hospitalist Progress Note - Encounter Date of Encounter: 10/17/18 Time of Encounter: 07:51 - Subjective Interval History: Pt has continued Afib w RVR in 160-170s overnight, with mild aches that he does not state are pain. Daughter in law is RN and stayed with him overnight, family has decided that he should be comfort-care and are trying to decide between inpatient and outpatient hospice. Carmela Pappas met with family and they want to discuss options with rest of family and make decision in the morning. Harriett is managing comfort care medications. Pt has been removed from telemetry. - Exam Vitals: Temp Pulse Resp BP Pulse Ox 98.7 F 168 20 98/67 95 10/17/18 03:47 10/17/18 03:47 10/17/18 03:47 10/17/18 03:47 10/17/18 03:47 Exam: General: Awake, alert, no acute distress, signs of toxicity, laying in bed Head: Atraumatic, normocephalic, Eye: Normal appearance, pupils equal and round, EOMi, no scleral icterus, no conjunctival injection ENT: Mucous membranes dry Neck: Normal inspection, trachea midline, full ROM Chest: Symmetric chest rise, non tender to palpation Respiratory: Normal resp effort, vesicular breath sounds, no wheezing, rhonchi or rales appreciated Cardiovascular: Tachycardic, irregular rhythm, S1/S2+, no murmurs, rubs, or gallops appreciated, radial pulse 2+ bilat, filippo LE edema 4+ up to knee, 2+ to mid-thigh Abdomen: Soft, nontender, nondistended, no guarding, rebound, or organomegaly Musculoskeletal: Spontaneously moving all extremities, no calf tenderness Skin: Warm, dry, intact Neuro: Cranial nerves 2-12 grossly intact, no focal deficits Psych: Normal affect - Assessment and Plan (1) Acute kidney injury Current Visit: Yes Status: Acute Assessment and Plan: Pt is DNR-CC If family/pt changes their mind, consideration and treatment will be discussed. (2) Atrial fibrillation with RVR Current Visit: No Status: Acute Assessment and Plan: -Likely 2/2 dehydration -Anticoagulated with dabigatran at home -HR 172 most recently -Holding all rate control meds as he has been hypotensive -on Pradaxa (3) Failure to thrive Current Visit: Yes Status: Acute Assessment and Plan: Pt is DNR-CC If family/pt changes their mind, consideration and treatment will be discussed. (4) Hypotension Current Visit: Yes Status: Acute Assessment and Plan: Pt is DNR-CC Is not symptomatic at this time for hypotension. (5) Lactic acidosis Current Visit: Yes Status: Resolved Assessment and Plan: Lactic improved 1.7 after IVF No signs of infection (6) Prostate cancer metastatic to multiple sites Current Visit: Yes Status: Acute Assessment and Plan: Pt is DNR-CC If family/pt changes their mind, consideration and treatment will be discussed. DVT Prophylaxis: Dabigatran - Time Spent with Patient Total time spent is greater than 50% in coordination of care (as documented) at patient's floor/unit and/or counseling patient: less than 15 minutes Plan of Care Discussed with: [facility] Internal Medicine: Result - Labs CBC & Chem 7: 10/16/18 06:59 10/16/18 06:59 Labs: Short CBC 10/16/18 Range/Units 06:59 WBC 6.7 (4.3-11.1) K/mcL Hgb 11.8 L (12.9-16.9) g/dL Hct 36.8 L (37.5-50.1) % Plt Count 307 (140-400) K/mcL BMP 10/16/18 06:59 Sodium 140 Potassium 3.3 L Chloride 109 H Carbon Dioxide 19 L BUN 31 H Creatinine 1.45 H Glucose 106 H Calcium 6.3 L - ABG Interpretation ABG results: PT/INR, D-dimer PT 20.5 Seconds (9.4-12.1) H 10/15/18 01:49 Consult Discharge Plan - Plan Referrals: Maritza Mccord [employer]IAL WORKER [Primary Care Provider] - <Kandy Chaudhari - Last Filed: 10/17/18 15:27> Hospitalist Progress Note - Encounter Date of Encounter: 10/17/18 - Exam Vitals: Temp Pulse Resp BP Pulse Ox 98.0 F 173 18 76/54 96 10/17/18 11:56 10/17/18 09:00 10/17/18 11:56 10/17/18 11:56 10/17/18 10:30 - Assessment and Plan (1) Atrial fibrillation with RVR Current Visit: No Status: Acute (2) Failure to thrive Current Visit: Yes Status: Acute (3) Acute kidney injury Current Visit: Yes Status: Acute (4) Prostate cancer metastatic to multiple sites Current Visit: Yes Status: Acute (5) Lactic acidosis Current Visit: Yes Status: Resolved (6) Hypotension Current Visit: Yes Status: Acute - Time Spent with Patient Total time spent is greater than 50% in coordination of care (as documented) at patient's floor/unit and/or counseling patient: Internal Medicine: Result - Labs CBC & Chem 7: 10/16/18 06:59 10/16/18 06:59 - ABG Interpretation ABG results: PT/INR, D-dimer PT 20.5 Seconds (9.4-12.1) H 10/15/18 01:49 - Attending Attestation I examined this patient and my medical decision-making was reviewed with the Resident Physician Dr Mendoza. I agree with the documented findings, disposition and treatment plan as described except to the extent set forth below/addl details below Mr Cabrera is currently admitted with metastatic prostate cancer and failure to thrive with hypotension in outpt setting and weakness. He has hx of afib and was in afib rvr on admit with dehydration and hypokalemia. He remains in afib that cannot be rate controlled due to hypotension and cannot currently be given ivf fluids due to fluid overload and family preference not to overload him further. he is asleep fatigued with hr that remains in 150-160s and family at bedside. He denies pain currently. denies sob but appears to have some mild resp distress now wearing o2 nc. DR Smith at bedside. Decision by family to [facility] hosp[facility] care. DNR CC ordered. Palliative updated family deciding which hospice they prefer. new orders by palliative care gen- awakes to name, fatgiued, mild resp distress, appears stated age cv- tachy rate and irreg/irreg rhythm, normal s1,s2, no murmurs appreciated, 2+ pitting le edema bl shins lungs- + expiratory wheezing, rapid shallow breaths with diminished bs in bases, on o2 nc neuro- AAOx person, place, situation Hypotension, stable currently Afib with rvr, uncontrolled but asx Acute hypoxic resp failure requiring low rate o2 nc currently -will dc tele -dnr cc decision made and transition to hospice palliative care has added addl comfort focused orders -family to decide which hospice service they would like inpt vs home and update palliative in morning prostate ca with mets- oncology on board, palliative on board as above, hospice further diagnoses and plan as documented by resident <Paula Mendoza - Last Filed: 10/17/18 14:22> (3) Failure to thrive Qualifiers: Failure to thrive age range: in adult Qualified Code(s): R62.7 - Adult failure to thrive (4) Hypotension Qualifiers: Hypotension type: hypotension due to hypovolemia Qualified Code(s): I95.89 - Other hypotension; E86.1 - Hypovolemia <Kandy Chaudhari - Last Filed: 10/17/18 15:27> (2) Failure to thrive Qualifiers: Failure to thrive age range: in adult Qualified Code(s): R62.7 - Adult failure to thrive (6) Hypotension Qualifiers: Hypotension type: hypotension due to hypovolemia Qualified Code(s): I95.89 - Other hypotension; E86.1 - Hypovolemia
--- NOTE | 2018-10-17 08:51 | Electrocardiograph Report ---
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
[2018-10-17] MEDS ORDERED: Levalbuterol Neb 0.63 MG/3 ML IH ONE (09:05)
[2018-10-17] MEDS ORDERED: Ondansetron ODT 4 MG TAB.RAPDIS SL PRN (09:41)
--- NOTE | 2018-10-17 09:50 | Palliative Progress Note ---
Date of Encounter: 10/17/18 Time of Encounter: 09:45 - Assessment and plan (1) Generalized pain Current Visit: Yes Status: Acute Assessment and plan: Will begin Roxanol 5mg PRN for discomfort. He is opioid naive and has never ut ilized pain medications prior. Will monitor closely and adjust as necessary (2) Dyspnea Current Visit: Yes Status: Acute Assessment and plan: Roxanol as well for dyspnea, will begin duonebs as he in congested and wheezing. Supportive oxygen for comfort. (3) Anxiety Current Visit: Yes Status: Acute Assessment and plan: Ativan intensol was started during the night. Daughter seven ramos that stayed last night stated he did rest much better after second dose. Continue and monitor (4) Acute kidney injury Current Visit: Yes Status: Acute (5) Prostate cancer metastatic to multiple sites Current Visit: Yes Status: Acute (6) Goals of care, counseling/discussion Current Visit: Yes Status: Acute Assessment and plan: Discussed with family at bedside. They had f/u visit from oncology. Patient desires to transition to comfort care only and pursue hospice. Discussed inpt vs home hospice, initially family desired inpatient temporarily for symptom management and understood that if we get symptoms under control, we would assist with transition home with [facility]. Patient's daughter seven ramos, who is RN, asked if they would have to remain with [facility] at that time, as she was interested in [facility] hospice services, as someone in the family had a bad experience with [facility]. I discussed that [facility] would utilized ECF for [facility] stay, so he would have to be transferred out of hospital for their [facility] care. Family verbalized understanding. They desire to discuss with pt and other family members today, and will let us know of decision tomorrow am. Notified Dr. Mendoza and Dr. Chaudhari. Re-visited pt at 1120. Per family request, facilitated family discussion with patient regarding pt desires and wishes regarding arrangements. Provided emotional support. (7) Hypotension Current Visit: Yes Status: Acute Qualifiers: Hypotension type: hypotension due to hypovolemia Qualified Code(s): I95.89 - Other hypotension; E86.1 - Hypovolemia (8) Atrial fibrillation with RVR Current Visit: No Status: Acute - Time Spent With Patient Total time spent is greater than 50% in coordination of care (as documented) at patient's floor/unit and/or counseling patient: - Subjective Interval history: Patient with restless night, I was called during night for request of medication as he was yelling out frequently and could not rest. He is sleeping now on my arrival. Still with sustained afib/rvr, rate 160-170. B/P remains 90's/60's. Has been asymptomatic with this. Lost IV access last pm and pt did not want it restarted. Increased edema and legs are seeping now. Oncology did f/u visit this am, and pt/family had decided to transition to comfort care only. - Constitutional Vitals: Abnormal lab results Hgb 11.8 g/dL (12.9-16.9) L 10/16/18 06:59 Hct 36.8 % (37.5-50.1) L 10/16/18 06:59 MCH 27.3 pg (28.0-33.3) L 10/16/18 06:59 RDW 19.8 % (11.5-14.5) H 10/16/18 06:59 Nucleated RBCs/100 WBC 0.5 /100 WBC (0) H 10/15/18 05:26 PT 20.5 Seconds (9.4-12.1) H 10/15/18 01:49 Potassium 3.3 mEq/L (3.5-5.1) L 10/16/18 06:59 Chloride 109 mEq/L (98-107) H 10/16/18 06:59 Carbon Dioxide 19 mEq/L (23-29) L 10/16/18 06:59 BUN 31 mg/dL (8-23) H 10/16/18 06:59 Creatinine 1.45 mg/dL (0.70-1.30) H 10/16/18 06:59 Est GFR ( Amer) 57 (> 60) L 10/16/18 06:59 Est GFR (Non-Af Amer) 47 (> 60) L 10/16/18 06:59 Glucose 106 mg/dL (70-105) H 10/16/18 06:59 Calcium 6.3 mg/dL (8.6-10.3) L 10/16/18 06:59 Direct Bilirubin 0.3 mg/dL (0.0-0.2) H 10/15/18 01:02 AST 219 Units/L (13-39) H 10/15/18 01:02 Alkaline Phosphatase 213 Units/L (34-104) H 10/15/18 01:02 Serum Total Protein 5.2 g/dL (6.4-8.9) L 10/15/18 01:02 Albumin 2.8 g/dL (3.5-5.7) L 10/15/18 01:02 Urine Ketones Trace mg/dL (Negative) H 10/15/18 03:34 Urine Blood Moderate (Negative) H 10/15/18 03:34 Urine Bilirubin Small (Negative) H 10/15/18 03:34 Urine Microscopic RBC 5-15 per hpf (0-3) H 10/15/18 03:34 Urine Microscopic WBC 3-5 per hpf (0-3) H 10/15/18 03:34 Ur Squamous Epith Cells Many per lpf (None-Few) H 10/15/18 03:34 General appearance: Present: no acute distress - Respiratory Additional comments: Scattered rhonchi and expiratory wheezes throughout. - Cardiovascular Cardiovascular exam: Present: irregular rhythm, tachycardia - GI/Abdominal GI/Abdominal exam: Present: distended, normal bowel sounds, soft - Additional comments: Day patent with yellow urine - Extremities Exam Additional comments: 2-3+ edema - weeping noted to lower extremities - Neurological Exam Neurological exam: Present: alert, oriented X3 Additional comments: generalized weakness - Skin Skin exam: Present: dry, pallor, warm Palliative Quality Palliative Quality: Screen for Code Status: Yes, Screen for Goals of Care: Yes, Screen for Pain: Yes, If Pain Regimen Started, Initiate Bowel Regimen: NA, Screen for Nausea/Vomitting: Yes Code Status: 10/15/18 03:22 Resuscitation Status: Active [RES] Routine Comment: Resuscitation Status: Full Code 10/15/18 09:40 DNR [Resuscitation Status: Active] [RES] Routine Comment: Desires no Central lines or pressor support. Resuscitation Status: [id number] 10/17/18 09:40 DNR [Resuscitation Status: Active] [RES] Routine Comment: Resuscitation Status: DNR-Comfort Care - Labs CBC & Chem 7: 10/16/18 06:59 10/16/18 06:59 - ABG Interpretation ABG results: PT/INR, D-dimer PT 20.5 Seconds (9.4-12.1) H 10/15/18 01:49 Palliative Scale - Palliative Performance Scale How ambulatory is this patient?: Mainly sit / lie What is patient's level of activity and evidence of disease?: Unable to do any work, Extensive disease How much self-care assistance does patient require?: Considerable assistance required How much oral intake does the patient have?: Minimal to sips What is this patient's level of consciousness?: Full Palliative Performance Score: 40 % Consult Discharge Plan - Plan Referrals: Maritza Mccord, [employer] DEVELOPER [Primary Care Provider] -
[2018-10-17] MEDS ORDERED: Ipratropium/Albuterol Neb 3 ML IH SCH (10:00)
[2018-10-17] MEDS: MORPHINE SUL Oral CONC 10 MG/0.5 ML ORAL.SYG SL PRN ×2 (10:16→14:53)
[2018-10-17] MEDS: *HR* Dabigatran 150 MG CAPSULE PO SCH ×2 (10:16→21:30)
[2018-10-17] MEDS: Magnesium Oxide 400 MG TABLET PO SCH (10:16)
[2018-10-17] MEDS ORDERED: Hyoscyamine SL 0.125 MG TAB.SUBL SL PRN (12:14)
--- NOTE | 2018-10-17 15:54 | Oncology Inp Progress Note ---
Date of Encounter: 10/17/18 Time of Encounter: 09:00 (1) Prostate cancer metastatic to multiple sites Current Visit: Yes Status: Acute Assessment and plan: s/p multiple treatments with discomfort, had meeting with daughter-in law and son, who are in agreement with hospice plan due to his performace status and widespread metastatic disease. Family is requesting mprphine to be started, pallaitive care recommendations to be followed. In-patient vs out patient hospice de[ending on his needs and support at home. Plan [facility] staff who were present bedside this AM. Oncology: Subj Interval history: Patient was in discomfort over night per family - Constitutional Vitals: Vital Signs Temp Pulse Resp BP Pulse Ox 10/17/18 11:56 98.0 F 18 76/54 10/17/18 10:30 26 96 10/17/18 09:00 98 F 173 16 94/63 92 10/17/18 03:47 98.7 F 168 20 98/67 95 10/17/18 00:11 99.3 F 170 20 98/63 94 10/16/18 20:39 98.1 F 175 20 114/77 89 10/16/18 16:47 97.8 F 166 18 88/53 93 Intake and Output 10/16/18 10/17/18 10/17/18 23:59 07:59 15:59 Intake Total 0 / 0 60 / 60 Balance 0 / 0 60 / 60 Intake: IV Fluids 0 / 0 0.9 % Sodium Chloride 1,000 ML 0 / 0 @ 75 mls/hr IVC .[id number] BREE Rx #:[id number] Oral 0 / 0 60 / 60 Other: Meal Dinner Percent of Meal Consumed 0% Stool Size Smear # Voids 2 1 # Bowel Movements 1 General appearance: mild distress - Head Head exam: Present: atraumatic, normal inspection - Eye Eye exam: Present: sclera anicteric - ENT ENT exam: Present: mucous membranes moist - Cardiovascular Cardiovascular exam: Present: +S1, +S2, tachycardia - Neurological Exam Neurological exam: Present: oriented X3, no focal deficits Oncology: Obj Data - Labs CBC & Chem 7: 10/16/18 06:59 10/16/18 06:59 - ABG Interpretation ABG results: PT/INR, D-dimer PT 20.5 Seconds (9.4-12.1) H 10/15/18 01:49 Consult Discharge Plan - Plan Referrals: Maritza Mccord CNP [Primary Care Provider] - Inpatient Charges Provider: Dr. Naveen Interiano Follow up - Inpatient: [id number]
[2018-10-17] MEDS: Levalbuterol Neb 0.63 MG/3 ML IH SCH ×2 (16:20→22:58)
[2018-10-18] MEDS: MORPHINE SUL Oral CONC 10 MG/0.5 ML ORAL.SYG SL PRN ×5 (00:39→09:01)
[2018-10-18] MEDS: *HR* LORazepam Oral Conc 2 MG/ML PO PRN ×2 (02:35→07:45)
[2018-10-18] MEDS: Levalbuterol Neb 0.63 MG/3 ML IH SCH ×2 (03:59→05:44)
[2018-10-18 04:36] VITALS: BP 56/37
[2018-10-18] MEDS ORDERED: MORPHINE SUL Oral CONC 10 MG/0.5 ML ORAL.SYG SL PRN ×3 (09:08→09:20)
[2018-10-18] MEDS ORDERED: Haloperidol Oral Conc 10 MG/5 ML UDC PO SCH (09:15)
--- NOTE | 2018-10-18 09:21 | Discharge Summary ---
<Vangie Doan - Last Filed: 10/18/18 09:19> Orders not resulted at time of discharge: Pending orders 10/15/18 01:36 Culture,Blood [BC] Stat Date of Encounter: 10/18/18 Time of Encounter: 09:19 - Discharge Diagnosis (1) Prostate cancer metastatic to multiple sites Priority: Primary Status: Acute (2) Atrial fibrillation with RVR Priority: Secondary Status: Acute (3) Failure to thrive Priority: Secondary Status: Acute Qualifiers: Failure to thrive age range: in adult Qualified Code(s): R62.7 - Adult failure to thrive (4) Acute kidney injury Priority: Secondary Status: Acute (5) Lactic acidosis Priority: Secondary Status: Resolved (6) Hypotension Priority: Secondary Status: Acute Qualifiers: Hypotension type: hypotension due to hypovolemia Qualified Code(s): I95.89 - Other hypotension; E86.1 - Hypovolemia Hospital course: Mr. Cabrera is a 78 year old male - Time Spent with Patient Total time spent providing and/or coordinating discharge services: - Discharge Medications Home Medications: Ondansetron ODT [Zofran ODT] 4 mg SL Q6HR PRN 10/15/18 [History] Acetaminophen [Tylenol Susp] 650 mg PO Q6HR PRN ud.liq 10/18/18 [Rx] Haloperidol Oral Conc [Haldol] 2 mg PO Q6H udc 10/18/18 [Rx] Hyoscyamine SL [Levsin Sl] 0.125 mg SL Q4HR PRN tab.subl 10/18/18 [Rx] LORazepam Oral Conc [Ativan Oral Conc] 1 mg PO Q4HR PRN mls 10/18/18 [Rx] Levalbuterol Neb [Xopenex Neb] 0.63 mg IH [id number] vial.neb 10/18/18 [Rx] MORPHINE SUL Oral CONC [Roxanol Oral Conc] 5 mg SL Q1H PRN oral.syg 10/18/18 [Rx] MORPHINE SUL Oral CONC [Roxanol Oral Conc] 10 mg SL Q1H PRN oral.syg 10/18/18 [Rx] Allergies/Adverse Reactions: Allergy/AdvReac Type Severity Reaction Status Date / Time No Known Allergies Allergy Verified 10/15/18 13:42 Date of admission: 10/15/18 03:04 Primary care physician: Maritza Mccord CNP Consults: 10/15/18 02:51 Consult to Palliative Care [CONS] Stat Comment: Consulting Provider: Palliative [facility] Reason for Consult: Prostate Ca with mets, Failure to thrive Call Completed: No 10/15/18 03:21 Consult to Oncology [CONS] Routine Consulting Provider: [facility] Reason for Consult: metastatic prostate cancer. goals of care. ?? hospice?? Call Completed: No 10/15/18 06:05 Consult to Nutrition [CONS] Routine Comment: Consulting Provider: NUTRITION Reason for Dietary Consult: MST Score Consult to Fire Equipment Inspector Helper [CONS] Routine Reason for SW Consult: dicharge planning Discharging clinician: Kandy Chaudhari Anticipated date of discharge: 10/18/18 - Constitutional Vitals: Temp Pulse Resp BP Pulse Ox 98 F 160 20 56/37 94 10/18/18 04:25 10/18/18 04:25 10/18/18 05:44 10/18/18 04:25 10/18/18 05:44 - Patient Status Overall status at discharge: patient is not back to baseline - Discharge Instructions Follow Up With: Maritza Mccord CNP [Primary Care Provider] - - Diet and Activity Activity: resume usual activities as tolerated Diet: advance to your usual diet <Kandy Chaudhari - Last Filed: 10/18/18 13:03> - NOTES TO OUTPATIENT PROVIDER Notes to Outpatient Provider: transitioned to inpt hospice Orders not resulted at time of discharge: Pending orders 10/15/18 01:36 Culture,Blood [BC] Stat Date of Encounter: 10/18/18 - Discharge Diagnosis (1) Atrial fibrillation with RVR Status: Acute (2) Failure to thrive Status: Acute Qualifiers: Failure to thrive age range: in adult Qualified Code(s): R62.7 - Adult failure to thrive (3) Acute kidney injury Status: Acute (4) Prostate cancer metastatic to multiple sites Status: Acute (5) Lactic acidosis Status: Resolved (6) Hypotension Status: Acute Qualifiers: Hypotension type: hypotension due to hypovolemia Qualified Code(s): I95.89 - Other hypotension; E86.1 - Hypovolemia Hospital course: Mr. Cabrera is a 78 year old male who was admitted with metastatic prostate cancer and failure to thrive with hypotension in outpt setting. He has hx of afib and was in afib rvr on admit with dehydration and hypokalemia. He remained in asymptomatic afib wth RVR that could not be rate controlled due to hypotension and hypotension that could not be further addressed due to fluid overload and refractory to albumin. Palliative care and his oncology team followed with him this admission. Pt and family decided to pursue inpt hospice and he is transitioned to hospice care this morning. Discharge discussed with: family - Time Spent with Patient Total time spent providing and/or coordinating discharge services: Less than 30 minutes (20 min) Date of admission: 10/15/18 03:04 Primary care physician: Maritza Mccord CNP Consults: 10/15/18 02:51 Consult to Palliative Care [CONS] Stat Comment: Consulting Provider: [facility] Reason for Consult: Prostate Ca with mets, Failure to thrive Call Completed: No 10/15/18 03:21 Consult to Oncology [CONS] Routine Consulting Provider: [facility] Reason for Consult: metastatic prostate cancer. goals of care. ?? hospice?? Call Completed: No 10/15/18 06:05 Consult to Nutrition [CONS] Routine Comment: Consulting Provider: NUTRITION Reason for Dietary Consult: MST Score Consult to Fire Equipment Inspector Helper [CONS] Routine Reason for SW Consult: dicharge planning - Constitutional Vitals: Temp Pulse Resp BP Pulse Ox 98 F 160 20 56/37 94 10/18/18 04:25 10/18/18 04:25 10/18/18 05:44 10/18/18 04:25 10/18/18 05:44 Exam: gen- mild resp distress, sleeping with family at bedside, lethargic lungs- accessory muscle use with o2 nc, no audible wheezing skin- no pallor neuro- asleep and did not wake due to goal of comfort - Attending Attestation I examined this patient and my medical decision-making was reviewed with the Resident Physician Dr Doan. I agree with the documented findings, disposition and treatment plan as described except to the extent set forth below/addl details below Mr Cabrera was admitted with metastatic prostate cancer and failure to thrive with hypotension in outpt setting and weakness. He has remained in afib with rvr, asymptomatic, this admission with inability to treat due to hypotension. Palliative care and oncology followed him this admission. He and family have decided to transition to inpt hospice care and he is being dc to hospice this morning exam entered in resident documentation is my exam: gen- mild resp distress, sleeping with family at bedside, lethargic lungs- accessory muscle use with o2 nc, no audible wheezing skin- no pallor neuro- asleep and did not wake due to goal of comfort Hypotension Afib with rvr, uncontrolled but asx Acute hypoxic resp failure requiring low rate o2 nc -dnr cc decision made and transition to hospice palliative care confirmed inpt hospice at [facility] today and he is being transitioned to their care prostate ca with mets- oncology on board, palliative on board as above, hospice further diagnoses and plan as documented by resident
--- NOTE | 2018-10-18 09:28 | Event Note ---
Date of Encounter: 10/18/18 Time of Encounter: 09:10 Patient restless and agitated. Family at bedside. Required escalation of Morphine frequency last pm. Up on side of bed and uncomfortable. D/W family at bedside. They desire to transition to inpatient hospice today utilizing [facility] for services. D/W hospitalist who will discharge. Referral called to [facility]. He requires better symptom management.
== END 2018-10-18 09:46 | disposition expired ==
LOC: 2ANU 00:28 → EMEROOARM 00:28 → SUATTDRO 03:22 → 2ANU 04:00
PROVIDERS: ADMIT Pediatrics; ATTEND Internal Medicine

== ENCOUNTER 2018-10-18 09:16 | Inpatient (IN) ==
[2018-10-18] MEDS ORDERED: *HR* LORazepam Oral Conc 2 MG/ML PO PRN ×2 (09:29→13:20)
[2018-10-18] MEDS ORDERED: Bisacodyl 10 MG RECTAL SUPPOSITORY RC PRN (09:29)
[2018-10-18] MEDS ORDERED: *HR* Morphine Soln 10 MG/5 ML UDC PO PRN (09:29)
[2018-10-18] MEDS ORDERED: Ondansetron ODT 4 MG TAB.RAPDIS SL PRN (09:29)
[2018-10-18] MEDS ORDERED: Hyoscyamine SL 0.125 MG TAB.SUBL SL PRN (09:29)
[2018-10-18] MEDS: Haloperidol Oral Conc 10 MG/5 ML UDC PO SCH ×3 (10:27→21:27)
--- NOTE | 2018-10-18 11:13 | Pallative History & Physical ---
Date of Encounter: 10/18/18 Time of Encounter: 11:00 Assessment and Plan (1) Agitation Current visit: Yes Status: Acute Will begin Haloperidol 2mg every 6 hours and monitor. Will decrease to 1mg once under better control. (2) Anxiety Current visit: No Status: Acute Will continue Lorazepam and titrate as needed. Received x4 last 24hours. (3) Dyspnea Current visit: No Status: Acute Roxanol PRN - Has utilized x5 last 24 hours. He is very uncomfortable with his breathing this am. Will increase and allow Roxanol 10mg for severe dyspnea, and 5mg for moderate dyspnea. Qualifiers: Dyspnea type: unspecified Qualified Code(s): R06.00 - Dyspnea, unspecified (4) Generalized pain Current visit: No Status: Acute Utilize Roxanol as well for discomfort. (5) Goals of care, counseling/discussion Current visit: No Status: Acute Patient family at bedside. Will be meeting with hospice this afternoon to enroll. Family aware that we are keeping here for symptom management, and if his condition stabilizes and medications are where they need to be for his comfort, we ultimately will still need to work on a plan for d/c home or to ECF with continued hospice care. (6) Metastatic malignant neoplasm to prostate Current visit: No Status: Acute Internal Medicine - H&P: HPI Admitted From: Intrahospital Transfer Plans for Post Hospital Care: Hospice - Home History of present illness: Mr. Cabrera is a 78 year old male with history of hypertension, A. fib, GERD, metastatic prostate cancer with multiple treatment modalities in the past. He received last chemotherapy about 5-6 weeks ago. His performance status had been decreasing at home, and was unable to get up from commode which prompted EMS call. Patient was admitted to hospital and was found to be extremely hypotensive, and in afib with rvr. He was initially worked up for infectious source which proved negative. His blood pressure did not respond to IV fluid resuscitation, and his heart rate continued to elevate. Oncology did see patent and stated he was not a candidate for further treatment, initially a conversation was held regarding possible [facility] clinical trial, but patient was no in any condition to proceed with that plan. After palliative and oncology consultation, decision was made to enroll in hospice care. Over the weekend, patient did have increasing shortness of breath, agitation, and anxiety. Spoke with family this am, and he will transition to [facility] care for symptom management, and if stabilizes, will transition home or to ECF. Upon my visit, he is restless and anxious - daughter n law at bedside is holding him up on side of bed. He denies pain, but c/o shortness of breath at rest, and pressure from urinary catheter. Appears confused, Continually repeats "get me up, get me up". Color is dusky. Daughter n law stated patient had terrible night and did not rest any despite frequent Roxanol and Lorazepam. Remains hypotensive and tachycardic with heart rate in 160's. Palliative performance scale 20%. Past Med Surg Social Fam HX - Past Medical History Medical history: arthritis, atrial fibrillation, cancer, GERD, hypertension, other Additional medical history: prostate cancer Psychiatric history: no psych history - Past Surgical History Surgical History: orthopedic, other, other Additional surgical history: right total knee - Social History Smoking Status: 2nd Hand Smoke Exposure Smokeless Tobacco Status: No Alcohol use: none Drug use: none - Family History Mother Adopted: No Living Status: Hx Family Cancer: Yes (breast cancer) Internal Medicine - H&P: Meds Ondansetron ODT [Zofran ODT] 4 mg SL Q6HR PRN 10/15/18 [History] Acetaminophen [Tylenol Susp] 650 mg PO Q6HR PRN ud.liq 10/18/18 [Rx] Haloperidol Oral Conc [Haldol] 2 mg PO Q6H udc 10/18/18 [Rx] Hyoscyamine SL [Levsin Sl] 0.125 mg SL Q4HR PRN tab.subl 10/18/18 [Rx] LORazepam Oral Conc [Ativan Oral Conc] 1 mg PO Q4HR PRN mls 10/18/18 [Rx] Levalbuterol Neb [Xopenex Neb] 0.63 mg IH [id number] vial.neb 10/18/18 [Rx] MORPHINE SUL Oral CONC [Roxanol Oral Conc] 5 mg SL Q1H PRN oral.syg 10/18/18 [Rx] MORPHINE SUL Oral CONC [Roxanol Oral Conc] 10 mg SL Q1H PRN oral.syg 10/18/18 [Rx] Allergy/AdvReac Type Severity Reaction Status Date / Time No Known Allergies Allergy Verified 10/15/18 13:42 ROS unobtainable: due to mental status Palliative Care-Exam - Constitutional General appearance: Present: mild distress - Head Head Exam: Present: normal inspection, normocephalic - Eye Eye exam: Present: normal appearance, PERRL - Respiratory Additional comments: Expiratory wheezed throughout, occasional rhonchi noted posteriorally. Moist cough. - Cardiovascular Cardiovascular exam: Present: irregular rhythm, tachycardia - GI/Abdominal Exam GI/Abdominal exam: Present: distended, soft - Catheter Type: Urethral (Day) - Extremities Exam Additional comments: 2+ edema bilateral lower extremities - Neurological Exam Neurological exam: Present: alert Additional comments: oriented to name and place, inappropriate statements at times. Does not follow commands this am, restless and agitated. - Skin Skin exam: Present: dry, pallor, warm Additional comments: Extremities are dusky. Palliative Quality Palliative Quality: Screen for Code Status: Yes, Screen for Goals of Care: Yes, Screen for Pain: Yes, If Pain Regimen Started, Initiate Bowel Regimen: Yes, Screen for Nausea/Vomitting: Yes
[2018-10-18] MEDS: Levalbuterol Neb 0.63 MG/3 ML IH SCH ×3 (11:17→21:55)
[2018-10-18] MEDS ORDERED: MORPHINE SUL Oral CONC 10 MG/0.5 ML ORAL.SYG SL PRN (12:30)
[2018-10-18] MEDS: MORPHINE SUL Oral CONC 10 MG/0.5 ML ORAL.SYG SL PRN (13:25)
[2018-10-18] MEDS ORDERED: Scopolamine Patch 1.5 MG PATCH.TD72 TD SCH (16:15)
[2018-10-18] MEDS: MORPHINE SUL Oral CONC 10 MG/0.5 ML ORAL.SYG SL SCH ×2 (16:32→19:59)
[2018-10-18] MEDS: *HR* LORazepam Oral Conc 2 MG/ML SL PRN (17:33)
[2018-10-19] MEDS: MORPHINE SUL Oral CONC 10 MG/0.5 ML ORAL.SYG SL SCH ×3 (00:20→08:07)
[2018-10-19] MEDS: Haloperidol Oral Conc 10 MG/5 ML UDC PO SCH ×2 (03:34→08:06)
[2018-10-19] MEDS: Levalbuterol Neb 0.63 MG/3 ML IH SCH ×2 (03:52→10:42)
[2018-10-19] MEDS ORDERED: Atropine Sulfate 1% 40 DROP/2 ML BOTTLE SL PRN (08:14)
--- NOTE | 2018-10-19 08:58 | Palliative Progress Note ---
Date of Encounter: 10/19/18 Time of Encounter: 08:50 - Assessment and plan (1) Agitation Current Visit: Yes Status: Acute Assessment and plan: Continue scheduled Haloperidol (2) Anxiety Current Visit: No Status: Acute Assessment and plan: Continue Lorazepam PRN. Has not required last 12 hours. (3) Dyspnea Current Visit: No Status: Acute Qualifiers: Dyspnea type: unspecified Qualified Code(s): R06.00 - Dyspnea, unspecified (4) Generalized pain Current Visit: No Status: Acute Assessment and plan: Continue scheduled Roxanol every 4 hours with hourly PRN. He appears comfortable. Continue and titrate as needed. (5) Goals of care, counseling/discussion Current Visit: No Status: Acute Assessment and plan: Family at bedside. Provided emotional support. Doubt he will survive next 24 hours. (6) Metastatic malignant neoplasm to prostate Current Visit: No Status: Acute - Time Spent With Patient Total time spent is greater than 50% in coordination of care (as documented) at patient's floor/unit and/or counseling patient: 25 - 35 minutes - Subjective Interval history: Patient with gurgling respirations - still fairly regular. Not responding to touch. Family states no longer moving. - Constitutional General appearance: Present: no acute distress - Respiratory Additional comments: Rhonchi throughout all lung chong. - Cardiovascular Cardiovascular exam: Present: irregular rhythm, tachycardia - Skin Additional comments: mottled and dusky. Cool to touch Palliative Quality Palliative Quality: Screen for Code Status: Yes, Screen for Goals of Care: Yes, Screen for Pain: Yes, If Pain Regimen Started, Initiate Bowel Regimen: Yes, Screen for Nausea/Vomitting: Yes Consult Discharge Plan - Plan Referrals: NONE,PCP [Primary Care Provider] -
[2018-10-19] MEDS: *HR* LORazepam Oral Conc 2 MG/ML SL PRN (10:26)
[2018-10-19] MEDS: MORPHINE SUL Oral CONC 10 MG/0.5 ML ORAL.SYG SL PRN (10:26)
--- NOTE | 2018-10-19 11:01 | Death Note ---
Discharge Sum: Summary - Date and Time Date of admission: 10/18/18 09:49 Date of : 10/19/18 Time of : 10:50 - Summary Details: Patient was admitted to general inpatient hospice after a quick decline from his metastatic prostate cancer. Patient was originally in hospital for hypotension and weakness, he declined any aggressive measures other than IV flluids/antibiotics. He continued to decline and was transitioned to general inpatient hospice on Thursday10/18/18, requiring escalation of comfort medications for his restlessness, dyspnea, and generalized discomfort. He at 1050 10/19/18 with family at bedside. - Additional Data Confirmation of as documented by pronouncing clinician: no pulse, no respirations, no heart sounds Family: at bedside Attending/PCP notified?: Yes Attending physician: Ara Alves MD Was code activated?: No Hospice patient?: Yes Discharge Sum: Diag - PCOD Probable Cause of : Respiratory arrest Discharge Sum: Prov - Provider Primary care physician: PCP NONE Admitting clinician: Ara Alves Consults: 10/18/18 09:29 Consult to Palliative Care [CONS] Routine Comment: Consulting Provider: Palliative Care [facility] Reason for Consult: GIP Call Completed: No
== END 2018-10-19 10:50 | disposition expired | DRG 951 ==
LOC: 2ANU 09:49
PROVIDERS: ADMIT Internal Medicine Hospice and Palliative Medicine; ATTEND Internal Medicine Hospice and Palliative Medicine